=== PATIENT | male | born 1985 | race Caucasian/White ===

== ENCOUNTER 2023-11-23 10:03 | Outpatient (CLI) | payer MEDICARE, SELFPAY ==
[2023-11-23 10:55] LABS: Semen Viscosity Not Increased (Not Increa.)
[2023-11-23 10:56] LABS: Liquefaction Semen Complete in 30 min. (<30 minutes); Semen Color Opaque (Grey-opaque); Semen Immotility 0 %; Semen Morphology Result to Follow; Semen Non-Progressive Motility 0 %; Semen Progressive Motility 0 % (>32); Semen Total Motility 0 (>40% (PM+NP)); Sperm Count 0 Mil/mL (60-150 million/mL)
[2023-11-30 21:52] LABS: Fructose, Semen 123 mg/dL (150-600)
== END 2023-11-23 10:04 | disposition home or self-care (01) ==
DX: Z31.41 Encounter for fertility testing (principal)
CPT/HCPCS: 82757; 88160; 89320

== ENCOUNTER 2025-03-10 16:29 | Emergency (ER) | payer MEDICARE, OTHER, SELFPAY ==
[2025-03-10 16:29] VITALS: BP 137/98; PULSE 92; RESP 16; TEMP 36.8; O2SAT 97
--- NOTE | 2025-03-10 16:30 | ECG_ITS ---
Test Date: 2025-03-10 16:37:00 Measurements Intervals [place] Rate: 82 P: 26 IA: 181 QRS: 3 QRSD: 102 T: 29 QT: 341 QTc: 399 Interpretive Statements SINUS RHYTHM POSSIBLE RIGHT VENTRICULAR CONDUCTION DELAY [RSR (QR) IN V1/V2] ABNORMAL ECG Electronically Signed On 03-11-2025 11:32:02 CDT by Douglas Goss M.D.
--- OUTSIDE RECORDS SUMMARY | 2025-03-10 16:32 | XMS_ITS | Clinical Summary ---
Author Organization [facility] Address [address] [place] [address] Phone Care Team Providers Care Plastics Patternmaker Name Role Phone Varun Jenkins APRN, LISA Unavailable Varun Jenkins APRN, CORN GRINDER Primary Care Pr ovider Prabhu Mathew MD Unavailable Christian Lau MD Unavailable [phone] Allergies Active Allergy Reactions Criticality Noted Date Comments Bupropion Rash Medium 08/26/2015 Medications Blood Glucose Monitoring Suppl DeviceIndications :Type 2 diabetes mellitus with hyperglycemia, without long-term current use of insulin ([facility]) Diagnosis: Diabetes type 2 Blood testing frequency: once a day E11.65 1 Each 12/02/19 22 Active Glucose Blood StripIndications: Type 2 diabetes mellitus with hyperglycemia, without long-term current use of insulin ([facility]) Diagnosis: Diabetes type 2 Blood testing frequency: once a day E11.65 100 Strip 3 12/02/19 22 Active Lancets MiscIndications:T ype 2 diabetes mellitus with hyperglycemia, without long-term current use of insulin ([facility]) Use to test blood sugar once daily as directed. E11.65 100 Lancet 3 12/02/19 22 Active aspirin EC 81 MG Tablet Delayed ResponseIndicatio ns:Erythrocytosis Take 1 Tablet by mouth daily. 90 Tablet 3 04/28/20 22 Active topiramate (TOPAMAX) 25 MG Tablet Take 1 Tablet by mouth 2 times daily. 180 Tablet 3 05/01/20 22 Active SUMAtriptan (IMITREX) 50 MG Tablet Take 1 Tablet by mouth once as needed for Migraine for up to 36 doses. Use as directed. May repeat dose in 2 hours if headache recurs. 9 Tablet 3 05/01/20 22 Active zolpidem (AMBIEN) 5 MG Tablet 5 mg. 05/13/20 22 Active albuterol 108 (90 Base) MCG/ACT Aerosol SolutionIndicatio ns:Acute lower respiratory infection take 2 Puffs by inhalation every 4 hours as needed for Wheezing or Cough. 18 g 06/24/20 22 Active LORazepam (ATIVAN) 0.5 MG Tablet 07/22/20 22 Active Diclofenac Sodium (VOLTAREN) 1 % Gel Apply 4 g 4 times daily. Both knees 100 g 11 12/24/19 23 Active ondansetron (ZOFRAN-ODT) 4 MG TABLET DISPERSIBLE Take 1 Tablet by mouth every 8 hours as needed for Nausea - 1st line. 10 Tablet 01/27/20 23 Active metoclopramide (REGLAN) 10 MG Tablet Take 1 Tablet by mouth 4 times daily as needed for Nausea - 2nd line. 10 Tablet 01/27/20 23 Active metFORMIN (GLUCOPHAGE) 1000 MG TabletIndications :Type 2 diabetes mellitus with hyperglycemia, without long-term current use of insulin (HCC) Take 1 Tablet by mouth 2 times daily (with meals). 180 Tablet 1 11/30/19 24 Active Testosterone Cypionate 200 MG/ML SolutionIndicatio ns:Male hypogonadism 100 mg by Intramuscular route once a week. 6 mL 12/31/19 24 Active Empagliflozin (Jardiance) 10 MG TabletIndications :Type 2 diabetes mellitus with diabetic polyneuropathy, without long-term current use of insulin (HCC) TAKE 1 TABLET BY MOUTH DAILY 90 Tablet 3 02/25/20 24 Active BD Integra Syringe 21G X 1-1/2 3 ML Misc USE NEEDED THREE TIMES A WEEK 11/24/19 24 Active ALPRAZolam (XANAX) 0.5 MG Tablet Take 0.5 mg by mouth. Active clobetasol (TEMOVATE) 0.05 % Solution APPLY TO AFFECTED AREA OF SCALP ONCE DAILY NEEDED Active ketoconazole (NIZORAL) 2 % Shampoo Apply to wet hair, leave on for 3 minutes, then rinse; three times weekly. 30 days supply 11/25/19 24 Active Minoxidil for Men 5 % Solution APPLY TO THE AFFECTED AREA EVERY DAY Active Tirzepatide (Mounjaro) 7.5 MG/0.5ML Solution Auto-injector 7.5 mg by Subcutaneous route once a week. 2 mL 01/03/20 25 Active cyclobenzaprine (FLEXERIL) 10 MG TabletIndications :Contusion of left hip, initial encounter Take 1 Tablet by mouth 3 times daily as needed for Muscle spasms. 90 Tablet 1 02/09/20 25 Active tadalafil (Cialis) 10 MG TabletIndications :Male sexual dysfunction Take 1 Tablet by mouth as needed for Erectile Dysfunction. Take 30-60 minutes prior to sexual activity. 10 Tablet 1 02/09/20 25 Active amphetamine-dextr oamphetamine (ADDERALL) 30 MG TabletIndications :Attention deficit hyperactivity disorder (ADHD), predominantly inattentive type Take 1 Tablet by mouth 2 times daily. 60 Tablet 02/09/20 25 Active Active Problems Problem Noted Date Diagnosed Date ADHD 04/15/2023 Long-term current use of testosterone cypionate 09/22/2022 Hepatic steatosis 06/18/2022 TIMOTHY on CPAP 06/18/2022 Obesity, morbid, BMI 40.0-49.9 06/18/2022 Polyneuropathy 12/01/2021 Male hypogonadism 12/01/2021 Traumatic brain injury 12/01/2021 DDD (degenerative disc disease), lumbar 12/02/19 S/P lumbar fusion 12/01/2021 PTSD (post-traumatic stress disorder) 12/01/2021 Serotonin syndrome 12/01/2021 Type 2 diabetes mellitus 12/01/2021 Lumbar radiculopathy 11/25/2021 Secondary polycythemia Encounters Date Type Department Care Team Description 02/08/2025 MyChart RX Renewal [facility] [address] [place] [id number] Varun Jenkins, HARVEST CREW SUPERVISOR, CORN GRINDER Medication Renewal Reviewed 01/08/2025 MyChart RX Renewal [facility] [address] [place] [phone] Varun Jenkins APRN, LISA Medication Renewal Reviewed 01/02/2025 Refill [facility] [address] [place] [address] Varun Jenkins APRN, LISA Medication Refill 12/12/2024 MyChart RX Renewal [facility] [address] [place] [address] Varun Jenkins APRN, LISA Medication Renewal Reviewed from Last 3 Months Immunizations Immunization Administration Dates Next Due Hepatitis A And Hepatitis B Vaccine 05/06/2002,0 04/07/2002 Hepatitis A Vaccine 09/15/2003 Hepatitis B Vaccine 10/13/2002 Inactivated Polio Vaccine 03/31/2002 Influenza Vaccine Nasal 07/08/2007,10/07/2004 Influenza Vaccine, Quadrivalent, PF 05/01,07/15/2017,06/04/2016,06/26 Influenza Vaccine,unspecifie d Formulation 04/30/2019,05/16/2018,04/30/2018,04/30,06/30/2014,05/30/2008,07/08/2007 ,07/12/2003 Influenza Virus Vaccine, Whole Virus 07/12/2003, 10/13/2002 Influenza, Injectable, Quadrivalent 08/13/2006 MMR Vaccine 06/21/2023,04/07/2002 Meningococcal Group B OMV 03/31/2002 Meningococcal Polysaccharide Vaccine (MPSV4) 03/31/2002 Meningococcal Vaccine, Unspe cified Formulation 03/31/2002 OPV 03/31/2002 TD VACCINE 03/31/2002 TDAP Vaccine 05/21/2023,01/17/2016,08/30/2011 Td, Unspecified Formulation 08/30/2006, 2 Typhoid Vaccine 10/13/2002 Family History Medical History Relation Name Comments Hypertension Father Hypertension Mother Asthma Sister Relation Name Status Comments Brother Alive Father Alive Mother Alive Sister Social History Tobacco Use Types Packs/Day Years Used Date Smoking Tobacco: Former Smokeless Tobacco: Never Tobacco Cessation:Counseling Given: No Alcohol Use Standard Drinks/Week Comments Never 0 (1 standard drink = 0.6 oz pur e alcohol) [facility] Utilities Answer Date Recorded In the past 12 months has e electric, gas, oil, or water company threatened to shut off services in your home? Patient declined 10/03/2024 Social Connection and Isolation Panel Answer Date Recorded In a typical week, how many times do you talk on the phone with family, friends, or neighbors? Patient declined 10/03/2024 How often do you get togethe r with friends or relatives? Patient declined 10/03/2024 How often do you attend lutheran or yazdanism serv ices? Patient declined 10/03/2024 Do you belong to any clubs o r organizations such as lutheran groups, unions, fraternal or athletic groups, or school groups? Patient declined 10/03/2024 How often do you attend meet ings of the clubs or organizations you belong to? Patient declined 10/03/2024 Are you , , di vorced, , never , or living with a partner? 10/03/2024 AUDIT-C Answer Date Recorded Q1: How often do you have a drink containing alc ohol? Patient declined 10/03/2024 Q2: How many drinks containi ng alcohol do you have on a typical day when you are drinking? Patient declined 10/03/2024 Q3: How often do you have si x or more drinks on one occasion? Patient declined 10/03/2024 Overall Financial Resource Strain (CARDIA) Answe r Date Recorded How hard is it for you to pa y for the very basics like food, housing, medical care, and heating? Patient declined 10/03/2024 PHQ-2 Answer Date Recorded Total Score - Questions 1-9 0 10/28 [facility] - Occupational Stress Questionnaire Answer Date Recorded Do you feel stress - tense, restless, nervous, or anxious, or unable to sleep at night because your mind is troubled all the time - these days? Patient declined 10/03/2024 Exercise Vital Sign Answer Date Recorde d On average, how many days pe r week do you engage in moderate to strenuous exercise (like a brisk walk)? 3 days 10/03/2024 On average, how many minutes do you engage in exercise at this level? 60 min 10/03/2024 Hunger Vital Sign Answer Date Recorded Within the past 12 months, y ou worried that your food would run out before you got the money to buy more. Patient declined Within the past 12 months, t he food you bought just didn't last and you didn't have money to get more. Patient declined 11/2024 PRAPARE - Transportation Answer Date Re corded In the past 12 months, has l ack of transportation kept you from medical appointments or from getting medications? Patient declined 10/03/2024 In the past 12 months, has l ack of transportation kept you from meetings, work, or from getting things needed for daily living? Patient declined 10/03/2024 Housing Stability Vital Sign Answer Jose e Recorded In the last 12 months, was t here a time when you were not able to pay the mortgage or rent on time? No 10/05/2023 Number of Places Lived in the Last Year Not on f ile 10/05/2023 In the last 12 months, was t here a time when you did not have a steady place to sleep or slept in a group home (including now)? No 10/05/2023 Housing Stability Vital Sign Answer Jose e Recorded In the last 12 months, was t here a time when you were not able to pay the mortgage or rent on time? Patient declined 10/03/19 25 In the past 12 months, how m any times have you moved where you were living? 0 10/03/2024 At any time in the past 12 m ont, were you homeless or living in a group home (including now)? Patient declined 10/03/2024 Education Answer Date Recorded What is the highest level of school you have completed or the highest degree you have received? Bachelor's degree (e.g., BA, AB, BS) 01/20/2023 Sexually Active Control Partners Comments Yes Sex and Gender Information Value Date Recorded Sex Assigned at Not on file Legal Sex Male 3:05 PM FOUNDRY MELT SUPERVISOR Gender Identity Not on file Sexual Orientation Not on file Last Filed Vital Signs Vital Sign Reading Time Taken Comments Blood Pressure 126/82 11/15/2024 10:40 AM CDT Pulse 106 11/15/2024 10:40 AM CDT Temperature 36.8 C (98.3 F) 11/15/2024 10:40 AM CDT Respiratory Rate 16 11/15/2024 10:40 AM CDT Oxygen Saturation 95% 11/15/2024 10:40 AM CDT Inhaled Oxygen Concentration - - Weight 134.3 kg (296 lb) 11/15/2024 10:40 AM CDT Height 170.2 cm (5' 7) 11/15/2024 10:40 AM CDT Body Mass Index 46.36 11/15/2024 10:40 AM CDT Plan of Treatment Upcoming Encounters Date Type Department Care Team (Late st Contact Info) Description 03/19/2025 10:00 AM CDT Office Visit [facility] - [place] [address] [place] [address] Varun Jenkins APRN, CORN GRINDER [address] [address] Health Maintenance Due Date Last Done Comments Diabetes: Eye Exam 1984 Diabetes: Foot Exam 1984 Human Papillomavirus (HPV) Immunization (1 - Male 3-dose series) 1999 Diabetes: Hemoglobin A1c 05/16/2023 023, 07/17/2022, 07/09/2022, Additional history exists Diabetes: Nephropathy Screening 01/27/2024 01/26/2023, 12/15/2022, 11/13/2022, Additional history exists SARS-COV-2 Immunization ( season) 2024 Influenza Immunization (#1) 04/30/202505/01, 04/30/2019, 05/16/2018, Additional history exists Td Immunization Every 10 Years (Adults With 1 Tdap) 05/21/2033 05/21/2023, 01/17/2016, 08/30/2011, Additional history exists Respiratory Syncytial Virus (RSV) Immunization (Adult) (1 - 1-dose 75+ series) 2059 Meningococcal Immunization (ACWY) Completed 03/31/2002, 03/31/2002 Hepatitis B Immunization Completed 003, 05/06/2002, 04/07/2002 DTaP/Tdap/Td Immunization Discontinued 2022, 01/17/2016, 08/30/2011, Additional history exists Hepatitis C Virus (HCV) Screening Discontinued Pneumococcal Immunization Combined Discontinued Rotavirus Immunization Aged Out No lo nger eligible based on patient's age to complete this topic Procedures Procedure Name Priority Date/Time Associated Diagnosis Comments CMP (COMPREHENSIVE METABOLIC PANEL) STAT 01/26/2023 10:35 AM CDT HEMOGLOBIN A1C W/ ESTIMATED GLUCOSE Routine 11/13/2022 11:09 AM CDT Type 2 diabetes mellitus with diabetic polyneuropathy, without long-term current use of insulin (HCC) from Last 3 Months or Most Recently Relevant to Health Maintenance Results * (ABNORMAL) Comprehensive Metabolic Panel (Cmp) [id number] (01/26/2023 10:35 AM CDT) SODIUM 140 136 - 144 mmol/L 01/26/2023 11:01 AM CDT [facility] POTASSIUM 3.8 3.5 - 5.1 mmol/L 01/26/2023 11:01 AM CDT [facility] CHLORIDE 102 100 - 110 mmol/L 01/26/2023 11:01 AM CDT [facility] CO2, VENOUS 26 22 - 32 mmol/L 01/26/2023 11:01 AM CDT [facility] ANION GAP 15.8 8.0 - 20.0 mmol/L 01/26/2023 11:01 AM CDT [facility] GLUCOSE 126(H) 70 - 99 mg/dL 01/26/2023 11:01 AM CDT [facility] BUN 15 6 - 20 mg/dL 01/26/2023 11:01 AM CDT [facility] CREATININE, BLOOD 1.05 0.80 - 1.30 mg/dL 01/26/2023 11:01 AM CDT [facility] BUN/CREATININE RATIO 14 12 - 20 ratio 01/26/2023 11:01 AM CDT [facility] TOTAL PROTEIN 7.2 6.0 - 8.3 g/dL 01/26/2023 11:[address] [facility] ALBUMIN 4.1 3.5 - 5.2 g/dL 01/26/2023 11:[address] [facility] Comment: The colormetric methods used for the determination of Albumin may lead to falsely elevated test results in patients suffering from renal failure or insufficiency due to interference with other proteins. A/G RATIO 1.3 1.0 - 2.0 01/26/2023 11:01 AM T [facility] CALCIUM 8.7(L) 8.9 - 10.3 mg/dL 01/26/2023 11:[address] [facility] T BILI 1.3(H) <=1.2 mg/dL 01/26/2023 11:[address] [facility] SGOT (AST) 25 <=40 U/L 01/26/2023 11:[address] [facility] SGPT (ALT) 29 <=41 U/L 01/26/2023 11:[address] [facility] ALKALINE PHOSPHATASE 62 40 - 130 U/L 01/26/2023 11:[address] [facility] GFR, ESTIMATED >60 >=60 01/26/2023 11:[address] [facility] Comment: Creatinine Clearance is the preferred criteria for selecting drug dose adjustments in renally impaired patients. The GFR is provided as additional pertinent clinical information. GFR is reported in mL/min/1.73 sq m. Calculation based on the Chronic Kidney Disease Epidemiology Collaboration (CKD- EPI) equation refit without adjustment for race. GFR, EST. >60 >=60 01/26/2 023 11:01 AM T [facility] GFR, EST. NONAFRICAN >60 >=60 01/26/2023 11:[address] [facility] Blood Venipuncture / Unknown 01/26/2023 10:35 AM CDT 01/26/2023 10:35 AM CDT Vidhya Sharpe HARVEST CREW SUPERVISOR, CORN GRINDER CHEMISTRY ORDERABLES Final Result [facility] [address] [place] [address] * HEMOGLOBIN A1C W/ ESTIMATED GLUCOSE (11/13/2022 11:09 AM CDT) HGB-A1C 5.1 4.0 - 6.0 % 11/13/2022 12:14 PM CDT [facility] Est Average Glucose 99.7 mg/dL 11/13/2022 12:14 PM CDT [facility] Blood Venipuncture / Unknown 11/13/2022 11:09 AM CDT 11/13/2022 11:36 AM CDT Narrative [facility] - 11/13/2022 12:14 PM CDT HEMOGLOBIN A1C: DIABETIC PATIENTS: WELL-CONTROLLED: 6.2 - 7.0 INTERMEDIATE WELL-CONTROLLED: 7.0 - 9.0 POORLY-CONTROLLED: >9.0 Varun Jenkins HARVEST CREW SUPERVISOR, CORN GRINDER CHEMISTRY ORDERA BLES Final Result Performing Organization Address City/[facility] Co de Phone Number [facility] [address] [place] [address] from Last 3 Months or Most Recently Relevant to Health Maintenance Insurance MEDICAID [place] MEDICARE C [facility] MEDICARE C [employer] [place] [facility] MEDICARE C [facility] Care Teams Plastics Patternmaker Relationship Specialty Start Date End Date Varun Jenkins APRN, CORN GRINDER [address] [address] PCP - General Advanced Practice Nurse 11/25/21 Varun Jenkins APRN, CORN GRINDER [address] [facility] [address] [place], [place] [id number] Nurse Practitioner Advanced Practice Nurse 11/25/21 Prabhu Mathew MD [address] [facility] [address] [place] [address] Consulting Physician Endocrinology 04/29/22 Christian Lau MD [address] [place] [address] Consulting Physician Neurology 05/01/22
--- OUTSIDE RECORDS SUMMARY | 2025-03-10 16:32 | XMS_ITS | Encounter Summary ---
Author Organization [facility] Address [address] [facility] [address] [place] [address] Phone Care Team Providers Care Order Filler Name Role Phone Varun Jenkins SPORTS MANAGEMENT PROFESSOR Primary Care Provider Reason for Visit * Reason Comments Infertility * Consultation (Routine) - Authorized Specialty Diagnoses / Procedures Referred By Srinivas cali Referred To Contact Urology Diagnoses Male infertility Felipe Gonzales MD PhD Phone: tel: fax: [facility] (All Locations) Referral ID Status Reason Start Date Expiration Date Visits Requested Visits Authorized [id number] Authorized Specialty Services Required 01/09/2025 08/11/[phone] Encounter Details Date Type Department Care Team (Late st Contact Info) Description 03/09/2025 1:40 PM CDT Office Visit [facility] U[facility] Medical Office Building [address] [place] [address] Rogelio Main MD [address] [facility] [place] [address] Male infertility Social History Tobacco Use Types Packs/Day Years Used Date Smoking Tobacco: Former Cigarettes Tobacco Cessation:Counseling Given: Not Answered Sex and Gender Information Value Date Recorded Sex Assigned at Not on file Legal Sex Male 7:16 PM SUPERVISOR ANODIZING Gender Identity Not on file Sexual Orientation Not on file documented as of this encounter Last Filed Vital Signs Vital Sign Reading Time Taken Comments Blood Pressure 114/77 03/09/2025 1:13 PM CDT Pulse 62 03/09/2025 1:13 PM CDT Temperature - - Respiratory Rate - - Oxygen Saturation - - Inhaled Oxygen Concentration - - Weight 113.4 kg (250 lb) 03/09/2025 1:13 PM CDT Height 170.2 cm (5' 7) 03/09/2025 1:13 PM CDT Body Mass Index 39.16 03/09/2025 1:13 PM CDT documented in this encounter Plan of Treatment Not on file documented as of this encounter Visit Diagnoses Diagnosis Male infertility Unspecified male infertility documented in this encounter Historical Medications * This list may reflect changes made after this encounter. clomiPHENE (CLOMID) 50 mg tablet Take 0.5 tablets (25 mg total) by mouth daily chorionic gonadotropin (PREGNYL) 10,000 unit injection Inject into the muscle as instructed 3 (three) times a week 10/14/2024 added in this encounter Orders Outpatient Referral Count Last Ordered Date Fir st Ordered Date AMB REFERRAL TO UROLOGY 1 03/09/2025 documented in this encounter Care Teams Order Filler Relationship Specialty Start Date End Date Varun Jenkins NP [address] [place] [address] PCP - General Nurse Practitioner 07/15/23 documented as of this encounter
--- OUTSIDE RECORDS SUMMARY | 2025-03-10 16:32 | XMS_ITS | Clinical Summary ---
Author Organization [facility] Address [address] [place] [address] Care Team Providers Care Chemical Process Operator Name Role Phone Varun Jenkins NP Primary Care Provider Allergies Active Allergy Reactions Criticality Noted Date Comments Bupropion Rash Medium 08/26/2015 Medications topiramate (TOPAMAX) 25 mg tablet Take 1 tablet (25 mg total) by mouth 2 (two) times a day Active testosterone cypionate (DEPO-TESTOTERON E) 200 mg/mL injection Inject 0.5 mL (100 mg total) into the muscle as instructed once a week 3 Active tadalafiL (ADCIRCA) 10 mg tablet Take 1 tablet (10 mg total) by mouth as needed 3 Active SUMAtriptan (IMITREX) 50 mg tablet Take 1 tablet (50 mg total) by mouth daily as needed 2 Active empagliflozin (JARDIANCE) 10 mg tablet Take 1 tablet (10 mg total) by mouth daily 2 Active dextroamphetamin e-amphetamine (ADDERALL) 30 mg tablet Take 1 tablet (30 mg total) by mouth 2 (two) times a day 4 Active cyclobenzaprine (FLEXERIL) 10 mg tablet Take 1 tablet (10 mg total) by mouth 3 (three) times a day as needed 1 Active methylPREDNISolo ne (MEDROL DOSEPACK) 4 mg DosepackIndicati ons:Wheezing Take 6 tabs on day 1, reduce dose by 1 daily until prescription is complete. 1 packet 3 Active Additional Information Patient not taking.Reported on 03/09/2025 benzonatate (TESSALON) 200 mg capsuleIndicatio ns:Acute cough Take 1 capsule (200 mg total) by mouth 3 (three) times a day as needed for cough keep tessalon out of reach of children, especially children under the age of 10, due to possible serious risk such as if ingested by children under the age of 10. 30 capsule 3 Active Additional Information Patient not taking.Reported on 03/09/2025 chorionic gonadotropin (PREGNYL) 10,000 unit injection Inject into the muscle as instructed 3 (three) times a week 5 Active clomiPHENE (CLOMID) 50 mg tablet Take 0.5 tablets (25 mg total) by mouth daily Active Active Problems No known active problems Encounters Date Type Department Care Team Description 03/09/2025 1:40 PM CDT Office Visit [facility] Urology [address] [facility] Office Building [address] [place] [address] Rogelio Main MD Male infertility 02/12/2025 9:00 AM CDT Clinical Support [facility] [address] [place] [phone] Visit for semen analysis 02/12/2025 7:09 AM CDT - 02/12/2025 11:59 PM CDT Hospital Encounter [address], [address] [phone] Discharge Disposition: Discharge to home or self care 01/09/2025 ACO Medication Access [facility] Accountable Care Organization [address] [place] [address] Anastasiia Morris CPhT 12/25/2024 6:58 AM CDT - 12/25/2024 11:59 PM CDT Hospital Encounter [address], [address] [phone] Discharge Disposition: Discharge to home or self care from Last 3 Months Social History Tobacco Use Types Packs/Day Years Used Date Smoking Tobacco: Former Cigarettes Tobacco Cessation:Counseling Given: Not Answered Sex and Gender Information Value Date Recorded Sex Assigned at Not on file Legal Sex Male 7:16 PM TOOLING INSPECTOR Gender Identity Not on file Sexual Orientation Not on file Obstetrics History Last Filed Vital Signs Vital Sign Reading Time Taken Comments Blood Pressure 114/77 03/09/2025 1:13 PM CDT Pulse 62 03/09/2025 1:13 PM CDT Temperature 36.8 C (98.2 F) 07/15/2023 5:51 PM TOOLING INSPECTOR Respiratory Rate 16 07/15/2023 5:51 PM TOOLING INSPECTOR Oxygen Saturation 97% 07/15/2023 5:51 PM TOOLING INSPECTOR Inhaled Oxygen Concentration - - Weight 113.4 kg (250 lb) 03/09/2025 1:13 PM CDT Height 170.2 cm (5' 7) 03/09/2025 1:13 PM CDT Body Mass Index 39.16 03/09/2025 1:13 PM CDT Plan of Treatment Health Maintenance Due Date Last Done Comments Depression Screening 1984 Hepatitis C Screening 1984 Regular Well Visit/Exam 18-64 2002 Varicella Vaccines (1 of 2 - 13+ 2-dose series) 08/05/2007 Influenza Vaccine (#1) 2025 0, 04/30/2019, 05/16/2018, Additional history exists DTaP/Tdap/Td Vaccine (4 - Td or Tdap) 05/21/2033 05/21/2023, 01/17/2016, 08/30/2011, Additional history exists Hepatitis B Screening Completed 10/13/2002, 002 HPV Vaccines Aged Out No longer eligi ble based on patient's age to complete this topic Pneumococcal vaccine <65 Aged Out No longer eligible based on patient's age to complete this topic Procedures Procedure Name Priority Date/Time Associated Diagnosis Comments POCT SEMEN Routine 02/12/2025 8:57 AM CDT Visit for semen analysis from Last 3 Months Results * (ABNORMAL) POCT semen (02/12/2025 8:57 AM CDT) Volume, Semen POC 1.5 >=1.4 ML Viscosity, Semen, POC SL. INCR. Sperm Concentration (M/mL) 21.8 >=16 M/mL pH, Semen, POC 8.1 >=7.2 Progressive Motility (%), POC 15(A) >=32 % Total Motility, (%), POC 24(A) >=40 % Total Progressive Motile Count (TPMC) (M), POC 4.8(A) >=6.7 M Total Motile Count (TMC) (M), POC 8.0(A) >=9.4 M Normal Morphology, (%) POC 1(A) >=4 % Comment:many multiple defect s Viability, (%), POC Comment:n/a DAYS OF ABSTINENCE, SEMEN, POC 5 2 - 5 day(s) Semen 02/12/2025 8:57 AM CDT Ansley PlKendra mehtae - 02/12/2025 12:[address] Main Alberto Devi MD POINT OF CARE TEST ORDERA BLES Final Result from Last 3 Months Insurance [facility] MEDICARE ADVANTAGE [facility] MEDICARE ADVANTAGE Care Teams Chemical Process Operator Relationship Specialty Start Date End Date Varun Jenkins NP [address] [facility] [address] PCP - General Nurse Practitioner 07/15/23
--- OUTSIDE RECORDS SUMMARY | 2025-03-10 16:32 | XMS_ITS | Referral Summary ---
Author Organization [facility] Address [address] [place] [address] Care Team Providers Care Slag Dumper Name Role Phone Varun Jenkins NP Primary Care Provider Encounters Date Type Department Care Team Description 03/09/2025 1:40 PM CDT Office Visit [facility] Urology [address] [facility] Office Building [address] [place] [phone] Rogelio Main MD Male infertility 02/12/2025 9:00 AM CDT Clinical Support [facility] [address] [place] [address] [address] [place] [address] Visit for semen analysis 02/12/2025 7:09 AM CDT - 02/12/2025 11:59 PM CDT Hospital Encounter [address], [address] [place] [address] Discharge Disposition: Discharge to home or self care 01/09/2025 ACO Medication Access [facility] Accountable Care Organization [address] [place] [address] Anastasiia Morris CPhT 12/25/2024 6:58 AM CDT - 12/25/2024 11:59 PM CDT Hospital Encounter [address], [address] [facility] [place] [address] Discharge Disposition: Discharge to home or self care from Last 3 Months Allergies Active Allergy Reactions Criticality Noted Date [...] Active Active Problems No known active problems Social History Tobacco Use Types Packs/Day Years Used Date Smoking Tobacco: Former Cigarettes Tobacco Cessation:Counseling Given: Not Answered Sex and Gender Information Value Date Recorded Sex Assigned at Not on file Legal Sex Male 7:16 PM LEGAL REFEREE Gender Identity Not on file Sexual Orientation Not on file Last Filed Vital Signs Vital Sign Reading Time Taken Comments Blood Pressure 114/77 03/09/2025 1:13 PM CDT Pulse 62 03/09/2025 1:13 PM CDT Temperature 36.8 C (98.2 F) 07/15/2023 5:51 PM LEGAL REFEREE Respiratory Rate 16 07/15/2023 5:51 PM LEGAL REFEREE Oxygen Saturation 97% 07/15/2023 5:51 PM LEGAL REFEREE Inhaled Oxygen Concentration - - Weight 113.4 kg (250 lb) 03/09/2025 1:13 PM CDT Height 170.2 cm (5' 7) 03/09/2025 1:13 PM CDT Body Mass Index 39.16 03/09/2025 1:13 PM CDT Plan of Treatment Not on file Procedures Procedure Name Priority Date/Time Associated Diagnosis [...] 5 day(s) Semen 02/12/2025 8:57 AM CDT Sandy Mandel - 02/12/2025 12:[address] Main Alberto Devi MD POINT OF CARE TEST ORDERA BLES Final Result from Last 3 Months Insurance [facility] Address: [facility] [id number] [place] [address] [facility] MEDICARE ADVANTAGE [facility] MEDICARE ADVANTAGE Care Teams Slag Dumper Relationship Specialty Start Date End Date Varun Jenkins NP [address] [place] [address] PCP - General Nurse Practitioner 07/15/23
--- OUTSIDE RECORDS SUMMARY | 2025-03-10 16:32 | XMS_ITS | Clinical Summary ---
Author Organization [facility] Address [address] [place] [address] Care Team Providers Care Barrel Assembler Helper Name Role Phone Williams Reddy DO Unavailable Varun Jenkins LOAN PROCESSOR-PATIENT CASE COORDINATOR Primary Care Pro vider Source Comments [facility],non-owned Affiliates and Associated Physician Practices is amultiple site organization consisting of ambulatory clinics and hospital sitesin [place], [place], [place] and [place]. This disclosure is being madepursuant to the Care Everywhere program and may not contain all information available regarding this patient. Last updated 18.[facility] [employer] Allergies Active Allergy Reactions Criticality Noted Date Comments Bupropion Rash Medium 08/26/2015 Medications * Be aware that medications may not be up to date on this document. Alwaysverify current medications with the patient. amphetamine-dext roamphetamine (ADDERALL) 30 MG tablet Take 1 (one) tablet by mouth Every morning and lunchtime 0 05/26/20 14 Active ibuprofen (MOTRIN) 600 MG tablet Take 1 Tab by mouth every 6 hours as needed for Pain 20 Tab 06/17/20 16 Active ALPRAZolam (XANAX) 0.5 MG tablet Take 1 (one) tablet by mouth as needed for Anxiety 2 tablets prn Active testosterone (ANDROGEL) 20.25 MG/ACT (1.62%) gel Use 4 Pump as instructed once daily Apply to clean, dry, intact skin of the shoulders and upper arms. 3 bottles 1 04/06/20 19 Active Additional Information Patient not taking.Reported on 03/04/2022 traZODone (DESYREL) 100 MG tablet 04/05/20 20 Active hydrOXYzine hcl (ATARAX) 10 MG tablet 11/06/19 21 Active cyclobenzaprine (FLEXERIL) 10 MG tablet Take 1 (one) tablet by mouth 2 times daily as needed for Muscle Spasms 60 tablet 1 01/08/20 21 Active metFORMIN (GLUCOPHAGE) 500 MG tablet TAKE 1 TABLET BY MOUTH TWICE DAILY WITH THE MORNING AND EVENING MEAL 60 tablet 08/13/20 21 Active blood glucose monitoring device (ONE TOUCH ULTRA) device Diagnosis: Diabetes type 2 Blood testing frequency: once a day E11.65 12/02/19 22 Active Blood Glucose Monitoring Suppl (Nuroa VERMixertech REFLECT) w/Device KIT USE TEST ONCE DAILY 12/02/19 22 Active REFRESH TEARS 0.5 % ophthalmic solution 03/24/20 21 Active TRULICITY 1.5 MG/0.5ML injection ADMINISTER 1.5 MG UNDER THE SKIN 1 TIME A WEEK 02/11/20 22 Active JARDIANCE 10 MG tablet Take 1 (one) tablet by mouth once daily 02/11/20 22 Active Aspirin Low Dose 81 MG tablet Take 1 (one) tablet by mouth once daily 06/29/20 23 Active cyclobenzaprine (Flexeril) 10 MG tablet Take 1 (one) tablet by mouth 3 times daily as needed 01/21/20 23 Active FeroSul 325 (65 Fe) MG tablet 10/28/19 24 Active Semaglutide (2 MG/DOSE) 8 MG/3ML Subcutaneous Solution Pen-injector (Ozempic (2 MG/DOSE)) Inject 2 (two) mg subcutaneously every 7 days Active Testosterone Cypionate 200 MG/ML SOLN Active ketoconazole (Nizoral) 2 % shampooIndicatio ns:Other seborrheic dermatitis Apply to wet hair, leave on for 3 minutes, then rinse; three times weekly. 30 days supply 120 mL 5 11/25/19 24 Active clobetasol (Temovate) 0.05 % solutionIndicati ons:Other seborrheic dermatitis Apply to affected scalp once daily as needed. 30 days supply. 50 mL 3 11/25/19 24 Active minoxidil (Rogaine Extra Strength) 5 % solutionIndicati ons:Other androgenic alopecia Apply to affected area once daily 120 mL 5 11/25/19 24 Active Active Problems Problem Noted Date Diagnosed Date Prediabetes 01/07/2021 GERD (gastroesophageal reflux disease) 9 Migraines 11/30/2018 TIMOTHY (obstructive sleep apnea ): 2018 mild - mod TIMOTHY AHI 12.2, O2 82%, 290 lbs, cpap 8 10/25/2017 M.obesity 03/31/2017 BMI 50.0-59.9, adult 03/31/2017 Mood disorder 03/31/2017 Overview (03/31/2017): Office Visit 08/11/16 Dr. Rachel Hairston Lumbar degenerative disc disease 03/18/2017 Hypogonadism in male 09/30/2016 TBI (traumatic brain injury) 01/29/2016 S/P lumbar fusion 10/29/2015 Recurrent major depressive disorder, in full rem ission 10/29/2015 Overview (07/07/2018): Dr. Peraza -16-18 ADHD (attention deficit hyperactivity disorder) 06/26/2015 Chronic back pain 06/26/2015 Chronic ankle pain 06/26/2015 Degeneration of cervical intervertebral disc Torn rotator cuff 08/28/2014 Overview (08/28/2014): Left Family history of ischemic heart disease 014 Resolved Problems Problem Noted Date Diagnosed Date Resolved Date Suspected sleep apnea 09/08/20172017 Snoring 09/08/2017 10/25/2017 Hypersomnia 09/08/2017 10/25/2017 Malaise and fatigue 09/08/2017 10/25/19 18 Depression 09/08/2017 10/25/2017 S/P appendectomy 06/26/2015 06/04/2016 Obesity 06/26/2015 09/08/2017 Old lateral collateral ligament disruption 08/28/2014 08/12/2015 Concussion with no loss of consciousness 08/28/2014 08/12/2015 Immunizations Immunization Administration Dates Next Due HEP A VACCINE, ADULT 09/15/2003 HEP A/HEP B 05/06/2002 HEP B VACCINE, ADULT 3 DOSE 10/13/2002 INFLUENZA VACCINE 04/30/2019, 8,07/08/2007,07/12 INFLUENZA VACCINE, QUADR. (A FLURIA, FLUZONE QUADRIVALENT; 6MO+) (IIV4) 08/13/2006 INFLUENZA VACCINE, QUADR. (F LUZONE; FLULAVAL; FLUARIX; AFLURIA QUADRIVALENT; 6MO+), 0.5 ML (IIV4) 05/28/2020,07/15/2017,06/04/2016,06/26 MENINGOCOCAL MENINGITIS 03/31/2002 MMR 04/07/2002 Meningococcal B Recombinant 2 Dose, IM 2 POLIO OPV 03/31/2002 TD VACCINE 08/30/2006,03/31/2002 TDAP (7yrs+) 01/17/2016,08/30/2011 TYPHOID VACCINE H-P 10/13/2002 Td (Adult), 2 Lf Tetanus Tox oid, Adsorbed, Pf 03/31/2002 Family History Medical History Relation Name Comments Hypercholesterolemia Father Hypertension Father Sleep Disorder - Other Father DVT - Deep Vein Thrombosis Mother Heart Disease Mother Other Mother cardiac cath Relation Name Status Comments Brother Alive x4 Father Alive Mother Alive Sister Alive x3 Social History Tobacco Use Types Packs/Day Years Used Date Smoking Tobacco: Former Cigarettes Q uit: 08/28/2013 Smokeless Tobacco: Never Tobacco Cessation:Counseling Given: Not Answered Alcohol Use Standard Drinks/Week Comments Yes 0 (1 standard drink = 0.6 oz pur e alcohol) rare PHQ-2 Answer Date Recorded PHQ2 TOTAL SCORE 2 01/07/2021 Sex and Gender Information Value Date Recorded Sex Assigned at Not on file Legal Sex Male 9:05 AM CDT Gender Identity Not on file Sexual Orientation Not on file Occupation Industry Job Start Date Job End Date Student Not on file Not on file Not on file Last Filed Vital Signs Vital Sign Reading Time Taken Comments Blood Pressure 132/89 03/04/2022 9:26 AM CDT Pulse 104 03/04/2022 9:26 AM CDT Temperature 37.1 C (98.7 F) 03/04/2022 9:26 AM CDT Respiratory Rate 20 01/07/2021 10:45 AM CDT Oxygen Saturation 92% 03/04/2022 9:26 AM CDT Inhaled Oxygen Concentration - - Weight 133.8 kg (295 lb) 03/04/2022 9:26 AM CDT Height 170.2 cm (5' 7) 03/04/2022 9:26 AM CDT Body Mass Index 46.2 03/04/2022 9:26 AM CDT Plan of Treatment Health Maintenance Due Date Last Done Comments HPV VACCINE (1 - 3-dose SCDM series) 2011 DEPRESSION SCREENING 08/30/2024 MEDICARE AWV CALENDAR YEAR 2024 01/07/2021, 01/17/2020, 07/19/2018 INFLUENZA VACCINE (#1) 2025 , 04/30/2019, 05/16/2018, Additional history exists DTAP/TDAP/TD VACCINES (5 - Td or Tdap) 01/16/2026 01/17/2016, 08/30/2011, 08/30/2006, Additional history exists LIPID TESTING 12/01/2026 12/01/2021, 12/28, 01/23/2020, Additional history exists ZOSTER VACCINE (1 of 2) 2034 MENINGOCOCCAL (Group B) VACCINE SHARED DECISION-MAKING Discontinued 03/31/2002 MENINGOCOCCAL GROUPS A/C/Y/W VACCINE Completed 03/31/2002 HEPATITIS B VACCINE Discontinued 10/13/2002, 2 COVID-19 VACCINE Discontinued HEPATITIS C SCREENING Discontinued HIB VACCINE Aged Out No longer eligi ble based on patient's age to complete this topic HIV SCREENING Discontinued PNEUMOCOCCAL VACCINE Aged Out No long er eligible based on patient's age to complete this topic Medical Devices Implanted Type Area Family Services Specialist Device Identifier Shelf Expiration Date Model / Serial / Lot Chava Push Comp 2.9mm Implanted:Qty: 2 on 10/15/2014 by Flo Silverman MD at [facility] Left: Shoulder [employer] 03/30/2016 [id number] / / [id number] Anch Sut Swvl Chava Tenod Biocomp 7 X 19.1 Implanted:Qty: 1 on 10/15/2014 by Flo Silverman MD at [facility] Left: Shoulder [employer] 06/30/2016 [id number] -[id number] / / [id number] Procedures Procedure Name Priority Date/Time Associated Diagnosis Comments LIPID PROFILE Routine 01/13/2021 8:08 AM CDT Prediabetes M.obesity from Last 3 Months or Most Recently Relevant to Health Maintenance Results * (ABNORMAL) LIPID PROFILE (01/13/2021 8:08 AM CDT) Cholesterol 181 <200 mg/dL [facility] HDL Cholesterol 40 > OR = 40 mg/dL [facility] Triglycerides 143 <150 mg/dL [facility] LDL Calculated 115(H) mg/dL (calc) [facility] Comment: Reference range: <100 Desirable range <100 mg/dL for primary prevention; <70 mg/dL for patients with CHD or diabetic patients with > or = 2 CHD risk factors. LDL-C is now calculated using the Ramon-Adriel calculation, which is a validated novel method providing better accuracy than the Friedewald equation in the estimation of LDL-C. Ramon ORELLANA et al. SADIA. 2013;310(19): 1647-4312 (http://education.TORIA.ihiji/faq/HGH344) CHOL/HDLC RATIO 4.5 <5.0 (calc) [facility] Non HDL Cholesterol 141(H) <130 mg/dL (calc) [facility] Comment: For patients with diabetes plus 1 major ASCVD risk factor, treating to a non-HDL-C goal of <100 mg/dL (LDL-C of <70 mg/dL) is considered a therapeutic option. Test Performed at: [facility] [id number] [place] [address] MARGARET REYES DO,MPH Blood BLOOD SPECIMEN / Unknown 01/13/2021 8:08 AM CDT 01/13/2021 8:08 AM CDT us Dalton Peraza MD LAB - CHEMISTRY ORDERABLES F inal Result [facility] [id number] [place] [address] from Last 3 Months or Most Recently Relevant to Health Maintenance Insurance [facility] MA[facility] MEDICARE [place] [id number] MEDICAID - OUT OF STATE [facility] MANAGED MEDICARE [place] [id number] [facility] [email or web address] Address: SHAYNA VillatoroB ATTENTION [id number] JOSE C ABDULAZIZ [address] [facility] Care Teams Barrel Assembler Helper Relationship Specialty Start Date End Date Varun Jenkins APRN-LISA PCP - General 02/05/22 Williams Reddy DO Neurological Surgery 06/26/15
--- OUTSIDE RECORDS SUMMARY | 2025-03-10 16:32 | XMS_ITS | Encounter Summary ---
Author Organization [facility] Address [address] [place] [address] Phone Care Team Providers Care Handle And Vent Machine Operator Name Role Phone Varun Jenkins APRN, CNP Unavailable Varun Jenkins APRN, LISA Primary Care Pr ovider Prabhu Mathew MD Unavailable Christian Lau MD Unavailable [phone] Reason for Visit * Reason Comments Medication Refill Encounter Details Date Type Department Care Team (Late st Contact Info) Description 04/05/2022 Refill [facility] - Family Medicine [facility] [address] [place] [phone] Varun Jenkins APRN, CONSUMER MARKETING ANALYST [address] [address] Medication Refill Social History Tobacco Use Types Packs/Day Years Used Date Smoking Tobacco: Former Smokeless Tobacco: Never Alcohol Use Standard Drinks/Week Comments Never 0 (1 standard drink = 0.6 oz pur e alcohol) PHQ-2 Answer Date Recorded Total Score - Questions 1-9 0 10/29 Sexually Active Control Partners Comments Yes Sex and Gender Information Value Date Recorded Sex Assigned at Not on file Legal Sex Male 3:05 PM LADIES LOCKER ROOM ATTENDANT Gender Identity Not on file Sexual Orientation Not on file COVID-19 Exposure Response Date Recorded In the last 10 days, have yo u been in contact with someone who was confirmed or suspected to have Coronavirus/COVID-19? No / Unsure 04/03/2022 7:33 AM CDT documented as of this encounter Miscellaneous Notes * Telephone Encounter - Aisha Joseph RN - 04/06/2022 2:32 PM CDT Name from pharmacy: TRULICITY 3MG/0.5ML SDP 0.5ML Will file in chart as: Trulicity 3 MG/0.5ML Solution Pen-injector The original prescription was discontinued on 04/03/2022 by Varun Jenkins APRN, CNP for thefollowing reason: Dose adjustment. documented in this encounter Plan of Treatment Upcoming Encounters Date Type Department Care Team (Late st Contact Info) Description 03/19/2025 10:00 AM CDT Office Visit [facility] - Family Medicine [facility] [address] [place] [address] Varun Jenkins APRN, CNP [address] [address] documented as of this encounter Visit Diagnoses Diagnosis Type 2 diabetes mellitus with diabetic polyneuropathy, without long-term current use of insulin (HCC) documented in this encounter Care Teams Handle And Vent Machine Operator Relationship Specialty Start Date End Date Varun Jenkins APRN, CNP #[address] [address] PCP - General Advanced Practice Nurse 11/25/21 Varun Jenkins APRN, CNP #[address] [address] Nurse Practitioner Advanced Practice Nurse 11/25/21 Prabhu Mathew MD #[address] [facility] [address] [address] [address] Consulting Physician Endocrinology 04/29/22 Christian Lau MD #[address] [place] [address] Consulting Physician Neurology 05/01/22 documented as of this encounter
--- OUTSIDE RECORDS SUMMARY | 2025-03-10 16:32 | XMS_ITS | Encounter Summary ---
Author Organization [facility] Address [address] [place] [address] Care Team Providers Care Acting Professor Name Role Phone Varun Jenkins SANDER WOODEN PENCILS Primary Care Provider Reason for Visit * Reason Comments ACO Quality Med Management Encounter Details Date Type Department Care Team (Late st Contact Info) Description 01/09/2025 ACO Medication Access [facility] Accountable Care Organization [address] [place] [address] Anastasiia Morris CPhT [address] [facility] [address] [place] [address] Social History Tobacco Use Types Packs/Day Years Used Date Smoking Tobacco: Never Sex and Gender Information Value Date Recorded Sex Assigned at Not on file Legal Sex Male 7:16 PM PATHOLOGY ASSISTANT Gender Identity Not on file Sexual Orientation Not on file documented as of this encounter Progress Notes * Anastasiia Morris CPhT - 01/09/2025 11:45 AM CDT ACO Medication Adherence Outreach Jai Linares is meeting the following Medicare Star Measures: Adherence to non-insulin diabetes med (med filled >80% of calendar year) (MAD); Mounjaro According to this report, Mounjaro (tirzepatide) was last filled on 12/04/2014 for a 28 day supply. Goal is to have enough medicine so that 80% or more of the days are covered each year. Next Step: Due to potential high cost barriers, typewriter mechanic contacted patient by Kannuu message to assess if eligible for financial assistance through Medicare Extra Help, NovoNordisk NovoCares (Ozempic). If cost is a concern, noting that if eligible and interested in switching to Ozempic from Mounjaro, providersapproval will be required. Anastasiia Morris CPhT Medication Single Fold Machine Operator [facility] Medical [facility] ([facility]) & Accountable Care Organization (ACO) documented in this encounter Plan of Treatment Not on file documented as of this encounter Visit Diagnoses Not on filedocumented in this encounter Care Teams Acting Professor Relationship Specialty Start Date End Date Varun Jenkins NP [address] [place] [id number] PCP - General Nurse Practitioner 07/15/23 documented as of this encounter
--- OUTSIDE RECORDS SUMMARY | 2025-03-10 16:32 | XMS_ITS | Encounter Summary ---
Author Organization [facility] Address [address] [place] [address] Phone Care Team Providers Care Greens Laborer Name Role Phone Varun Jenkins APRN, CNP Unavailable Varun Jenkins APRN, LISA Primary Care Pr ovider Prabhu Mathew MD Unavailable Christian Lau MD Unavailable [phone] Reason for Visit * Reason Comments Medication Refill Encounter Details Date Type Department Care Team (Late st Contact Info) Description 04/29/2023 Refill [facility] Medical [facility] - Family Medicine [facility] [address] [place] [phone] Varun Jenkins APRN, STAFF ELECTRICAL ENGINEER #[address] [address] Medication Refill Social History Tobacco Use Types Packs/Day Years Used Date Smoking Tobacco: Former Smokeless Tobacco: Never Alcohol Use Standard Drinks/Week Comments Never 0 (1 standard drink = 0.6 oz pur e alcohol) PHQ-2 Answer Date Recorded Total Score - Questions 1-9 0 10/29 Education Answer Date Recorded What is the highest level of school you have completed or the highest degree you have received? Bachelor's degree (e.g., BA, AB, BS) 01/20/2023 Sexually Active Control Partners Comments Yes Sex and Gender Information Value Date Recorded Sex Assigned at Not on file Legal Sex Male 3:05 PM INK BLENDER Gender Identity Not on file Sexual Orientation Not on file COVID-19 Exposure Response Date Recorded In the last 10 days, have yo u been in contact with someone who was confirmed or suspected to have Coronavirus/COVID-19? No / Unsure 04/26/2023 10:00 AM CDT documented as of this encounter Miscellaneous Notes * Telephone Encounter - Priti Vieira RN - 04/30/2023 12:22 PM CDT The original prescription was discontinued on 01/29/2022 by Varun Jenkins APRN, CNP for thefollowing reason: Dose adjustment documented in this encounter Plan of Treatment Upcoming Encounters Date Type Department Care Team (Late st Contact Info) Description 03/19/2025 10:00 AM CDT Office Visit [facility] - Family Medicine [facility] [address] [place] [address] Varun Jenkins APRN, CNP #[address] [address] documented as of this encounter Visit Diagnoses Diagnosis Type 2 diabetes mellitus with diabetic polyneuropathy, without long-term current use of insulin (HCC) documented in this encounter Care Teams Greens Laborer Relationship Specialty Start Date End Date Varun Jenkins APRN, LISA #[address] [address] PCP - General Advanced Practice Nurse 11/25/21 Varun Jenkins APRN, CNP #[address] [address] Nurse Practitioner Advanced Practice Nurse 11/25/21 Prabhu Mathew MD [address] [address] Consulting Physician Endocrinology 04/29/22 Christian Lau MD #2 [place] [phone] Consulting Physician Neurology 05/01/22 documented as of this encounter
[2025-03-10 16:35] VITALS: PULSE 88
[2025-03-10] MEDS: ALPRAZolam (*CRX) 0.5 MG TABLET PO (16:44)
[2025-03-10 16:45] VITALS: PULSE 87; RESP 21; O2SAT 94
[2025-03-10 16:46] VITALS: PULSE 81; RESP 14; O2SAT 96
[2025-03-10 16:47] VITALS: BP 136/100; PULSE 82; RESP 20; O2SAT 96
--- NOTE | 2025-03-10 16:49 | ED.ARRPALP ---
HPI - Arrhythmia/Palpitations General Chief Complaint: Arrhythmia/Palpitations Stated Complaint: chest pain Time Seen by Provider: 03/10/25 16:35 Source: patient Mode of arrival: ambulatory Limitations: no limitations History of Present Illness HPI narrative: this is a 39-year-old male with history of anxiety takes Ativan as needed presents after he had stressful of life event, and feels like as chest is heavy and can not take a deep breath with some sensation of racing heart. No chest pain no shortness of breath no abdominal pain no fever chills no nausea vomiting. complaint: heart racing Onset (ago): hour(s) Duration: intermittent Severity: mild Context: occurred during rest Related Data Allergies Allergy/AdvReac Type Severity Reaction Status Date / Time No Known Allergies Allergy Mild Verified 03/10/25 16:39 Review of Systems Review of Systems: All systems reviewed & are unremarkable except as noted in HPI and below PMFSH Past Medical History Medical History Anxiety Exam Const: General: healthy appearing and no acute distress Nutritional Appearance: well nourished Orientation/consciousness: patient oriented x3 Limitations: no limitations Neck: Neck: normal visual inspection and no lymphadenopathy Chest: Chest palpation & inspection: normal inspection of the chest Resp: Effort & Inspection: normal respiratory effort Auscultation: clear to auscultation bilaterally Cardio: Rate: regular rate Rhythm: regular rhythm GI: GI Palp: Yes Soft to palpation Auscultation: normal bowel sounds : General: Yes bladder normal to palpation Neuro: General: patient oriented x3, moves all extremities, no meningeal signs and no focal motor deficits Extrem: General: normal to inspection, no clubbing, cyanosis or edema and no pedal edema Psych: Affect: Anxious affect present Course Course Emergency Course: patient with anxiety/panic attack I had a normal EKG with normal sinus rhythm, patient given a dose of p.o. Xanax. Vital Signs Vital signs: Vital Signs Temperature 36.8 C 03/10/25 16:29 Pulse Rate 92 03/10/25 16:29 Respiratory Rate 16 03/10/25 16:29 Blood Pressure 137/98 H 03/10/25 16:29 Pulse Oximetry 97 03/10/25 16:29 Oxygen Delivery Room Air 03/10/25 16:29 Temperature 36.8 C 03/10/25 16:29 Pulse Rate 92 03/10/25 16:29 Respiratory Rate 16 03/10/25 16:29 Blood Pressure 137/98 H 03/10/25 16:29 Pulse Oximetry 97 03/10/25 16:29 Oxygen Delivery Room Air 03/10/25 16:29 Critical Care Time Critical Care Time Critical Care Time: No Discharge Plan Discharge Clinical Impression: Anxiety, Panic attack Patient Disposition: Home Condition: Stable Instructions: Antibiotic Form, Anxiety (ED), Panic Attack (ED) Additional Instructions: advised patient to take medication as prescribed and to follow with primary care physician within 1 week for further evaluation treatment. Patient Language: Azeri Prescriptions: New alprazolam [Xanax] 0.5 mg tablet 0.5 mg PO BID PRN (Reason: anxiety) Qty: 20 0RF Follow-up/Referrals: UNKNOWN,DOCTOR [Primary Care Provider] - Time of Disposition: 17:17
--- OUTSIDE RECORDS SUMMARY | 2025-03-10 17:11 | XMS_ITS | Clinical Summary ---
Author Organization [facility] Address [address] [place] [address] Phone Care Team Providers Care Gleason Operator Name Role Phone Varun Jenkins APRN, LISA Unavailable Varun Jenkins APRN, ELEMENTARY SUPERVISOR Primary Care Pr ovider Prabhu Mathew MD Unavailable Christian Lau MD Unavailable [phone] Allergies Active Allergy Reactions Criticality Noted Date Comments Bupropion Rash Medium 08/26/2015 Medications Blood Glucose Monitoring Suppl DeviceIndications :Type 2 diabetes mellitus with hyperglycemia, without long-term current use of insulin ([facility]) Diagnosis: Diabetes type 2 Blood testing frequency: once a day E11.65 1 Each 12/02/19 22 Active Glucose Blood StripIndications: Type 2 diabetes mellitus with hyperglycemia, without long-term current use of insulin ([facility]) Diagnosis: Diabetes type 2 Blood testing frequency: once a day E11.65 100 Strip 3 12/02/19 22 Active Lancets MiscIndications:T ype 2 diabetes mellitus with hyperglycemia, without long-term current use of insulin ([facility]) Use to test blood sugar once daily [...] Care Team Description 02/08/2025 MyChart RX Renewal [facility] [address] [place] [phone] Varun Jenkins, SOCIAL WORK LECTURER, ELEMENTARY SUPERVISOR Medication Renewal Reviewed 01/08/2025 MyChart RX Renewal [facility] [address] [place] [phone] Varun Jenkins APRN, LISA Medication Renewal Reviewed 01/02/2025 Refill [facility] [place] [place] [address] [place] [address] Varun Jenkins APRN, LISA Medication Refill 12/12/2024 MyChart RX Renewal [facility] [place] [place] [address] [place] [address] Varun Jenkins APRN, LISA Medication Renewal Reviewed [...] drink = 0.6 oz pur e alcohol) [facility] Utilities Answer Date Recorded In the [...] declined 10/03/2024 How often do you attend scientology or taoist serv ices? Patient declined 10/03/2024 Do you belong to any clubs o r organizations such as scientology groups, unions, fraternal or athletic groups, or [...] Total Score - Questions 1-9 0 10/28 [facility] - [...] place to sleep or slept in a halfway (including now)? No 10/05/2023 Housing Stability Vital [...] were you homeless or living in a halfway (including now)? Patient declined 10/03/2024 Education Answer Date Recorded What is the highest level of school you have completed or the highest degree you have received? Bachelor's degree (e.g., BA, AB, BS) 01/20/2023 Sexually Active Control Partners Comments Yes Sex and Gender Information Value Date Recorded Sex Assigned at Not on file Legal Sex Male 3:05 PM PROCESS CHEMIST Gender Identity Not on file Sexual Orientation [...] Group - Family Medicine - [place] [address] [place] [address] Varun Jenkins APRN, ELEMENTARY SUPERVISOR #[address] [address] Health Maintenance Due Date Last Done Comments [...] Results * (ABNORMAL) Comprehensive Metabolic Panel (Cmp) [id number] (01/26/2023 10:35 AM CDT) SODIUM 140 136 - 144 mmol/L 01/26/2023 11:01 AM CDT [facility] POTASSIUM 3.8 3.5 - 5.1 mmol/L 01/26/2023 11:01 AM CDT [facility] CHLORIDE 102 100 - 110 mmol/L 01/26/2023 11:01 AM CDT [facility] CO2, VENOUS 26 22 - 32 mmol/L 01/26/2023 11:01 AM CDT [facility] ANION GAP 15.8 8.0 - 20.0 mmol/L 01/26/2023 11:01 AM CDT [facility] GLUCOSE 126(H) 70 - 99 mg/dL 01/26/2023 11:01 AM CDT [facility] BUN 15 6 - 20 mg/dL 01/26/2023 11:01 AM CDT [facility] CREATININE, BLOOD 1.05 0.80 - 1.30 mg/dL 01/26/2023 11:01 AM CDT [facility] BUN/CREATININE RATIO 14 12 - 20 ratio 01/26/2023 11:01 AM CDT [facility] TOTAL PROTEIN 7.2 6.0 - 8.3 g/dL 01/26/2023 11:01 AM [facility] ALBUMIN 4.1 3.5 - 5.2 g/dL 01/26/2023 11:01 AM [facility] Comment: The colormetric methods used for the determination of Albumin may lead to falsely elevated test results in patients suffering from renal failure or insufficiency due to interference with other proteins. A/G RATIO 1.3 1.0 - 2.0 01/26/2023 11:01 AM T [facility] CALCIUM 8.7(L) 8.9 - 10.3 mg/dL 01/26/2023 11:01 AM [facility] T BILI 1.3(H) <=1.2 mg/dL 01/26/2023 11:01 AM [facility] SGOT (AST) 25 <=40 U/L 01/26/2023 11:01 AM [facility] SGPT (ALT) 29 <=41 U/L 01/26/2023 11:01 AM [facility] ALKALINE PHOSPHATASE 62 40 - 130 U/L 01/26/2023 11:01 AM [facility] GFR, ESTIMATED >60 >=60 01/26/2023 11:01 AM [facility] Comment: Creatinine Clearance is the preferred criteria for selecting drug dose adjustments in renally impaired patients. The GFR is provided as additional pertinent clinical information. GFR is reported in mL/min/1.73 sq m. Calculation based on the Chronic Kidney Disease Epidemiology Collaboration (CKD- EPI) equation refit without adjustment for race. GFR, EST. >60 >=60 01/26/2 023 11:01 AM T [facility] GFR, EST. NONAFRICAN >60 >=60 01/26/2023 11:01 AM [facility] Blood Venipuncture / Unknown 01/26/2023 10:35 AM CDT 01/26/2023 10:35 AM CDT Vidhya Sharpe SOCIAL WORK LECTURER, ELEMENTARY SUPERVISOR CHEMISTRY ORDERABLES Final Result [facility] [address] [place] [address] * HEMOGLOBIN A1C W/ ESTIMATED GLUCOSE (11/13/2022 11:09 AM CDT) HGB-A1C 5.1 4.0 - 6.0 % 11/13/2022 12:14 PM CDT [facility] Est Average Glucose 99.7 mg/dL 11/13/2022 12:14 PM CDT [facility] Blood Venipuncture / Unknown 11/13/2022 11:09 AM CDT 11/13/2022 11:36 AM CDT Narrative [facility] - 11/13/2022 12:14 PM CDT HEMOGLOBIN A1C: DIABETIC PATIENTS: WELL-CONTROLLED: 6.2 - 7.0 INTERMEDIATE WELL-CONTROLLED: 7.0 - 9.0 POORLY-CONTROLLED: >9.0 Varun Jenkins SOCIAL WORK LECTURER, ELEMENTARY SUPERVISOR CHEMISTRY ORDERA BLES Final Result Performing Organization Address City/[facility] Co de Phone Number [facility] [address] [place] [address] from Last 3 Months or Most Recently Relevant to Health Maintenance Insurance MEDICAID [place] MEDICARE C [facility] MEDICARE C [employer] [place] [facility] MEDICARE C [facility] Care Teams Gleason Operator Relationship Specialty Start Date End Date Varun Jenkins APRN, ELEMENTARY SUPERVISOR #[address] [address] PCP - General Advanced Practice Nurse 11/25/21 Varun Jenkins APRN, ELEMENTARY SUPERVISOR #2 [facility] [address] [place], [place] [phone] Nurse Practitioner Advanced Practice Nurse 11/25/21 Prabhu Mathew MD #2 [facility] [address] [place] [address] Consulting Physician Endocrinology 04/29/22 Christian Lau MD [address] [place] [address] Consulting Physician Neurology 05/01/22
--- OUTSIDE RECORDS SUMMARY | 2025-03-10 17:11 | XMS_ITS | Encounter Summary ---
Author Organization [facility] Address [address] [place] [address] Phone Care Team Providers Care Travel Attendants Name Role Phone Varun Jenkins APRN, CNP Unavailable Varun Jenkins APRN, LISA Primary Care Pr ovider Prabhu Mathew MD Unavailable Christian Lau MD Unavailable [phone] Reason for Visit * Reason Comments Medication Refill Encounter Details Date Type Department Care Team (Late st Contact Info) Description 04/05/2022 Refill [facility] Medical Group - Family Medicine [facility] [address] [place] [phone] Varun Jenkins APRN, RECONCILIATION COORDINATOR #[address] [address] Medication Refill Social History Tobacco Use Types [...] on file Legal Sex Male 3:05 PM WIRE SAWYER Gender Identity Not on file Sexual Orientation [...] Visit [facility] - Family Medicine [facility] [address] [place] [address] Varun Jenkins APRN, CNP #[address] [address] documented as of this encounter Visit Diagnoses Diagnosis Type 2 diabetes mellitus with diabetic polyneuropathy, without long-term current use of insulin (HCC) documented in this encounter Care Teams Travel Attendants Relationship Specialty Start Date End Date Varun Jenkins APRN, CNP #[address] [address] PCP - General Advanced Practice Nurse 11/25/21 Varun Jenkins APRN, CNP #[address] [address] Nurse Practitioner Advanced Practice Nurse 11/25/21 Prabhu Mathew MD #[address] [address] Consulting Physician Endocrinology 04/29/22 Christian Lau MD #[address] [place] [address] Consulting Physician Neurology 05/01/22 documented as of this encounter
--- OUTSIDE RECORDS SUMMARY | 2025-03-10 17:11 | XMS_ITS | Encounter Summary ---
Author Organization [facility] Address [address] [place] [address] Care Team Providers Care Wet Primer Powder Blender Name Role Phone Varun Jenkins CIRCUIT CLERK Primary Care Provider Reason for Visit * Reason Comments ACO Quality Med Management Encounter Details Date Type Department Care Team (Late st Contact Info) Description 01/09/2025 ACO Medication Access [facility] Accountable Care Organization [address] [place] [address] Anastasiia Morris CPhT [address] [facility] [address] [place] [address] Social History Tobacco Use Types Packs/Day Years Used Date Smoking Tobacco: Never Sex and Gender Information Value Date Recorded Sex Assigned at Not on file Legal Sex Male 7:16 PM MUSIC PROFESSOR Gender Identity Not on file Sexual Orientation [...] Step: Due to potential high cost barriers, press writer contacted patient by [facility] message to assess if eligible for financial assistance through Medicare Extra Help, NovoNordisk NovoCares (Ozempic). If cost is a concern, noting that if eligible and interested in switching to Ozempic from Mounjaro, providersapproval will be required. Anastasiia Morris CPhT Medication Pastry Cook Helper [facility] Medical Group ([facility]) & Accountable Care Organization (ACO) documented in this encounter Plan of Treatment Not on file documented as of this encounter Visit Diagnoses Not on filedocumented in this encounter Care Teams Wet Primer Powder Blender Relationship Specialty Start Date End Date Varun Jenkins NP [address] [place] [id number] PCP - General Nurse Practitioner 07/15/23 documented as of this encounter
--- OUTSIDE RECORDS SUMMARY | 2025-03-10 17:11 | XMS_ITS | Clinical Summary ---
Author Organization [facility] Address [address] [place] [address] Care Team Providers Care Knot Saw Operator Name Role Phone Williams Reddy DO Unavailable Varun Jenkins BUTTON AND BUCKLE MAKER-STOREROOM KEEPER Primary Care Pro vider Source Comments [facility],non-owned Affiliates and Associated Physician Practices is amultiple site organization consisting of ambulatory clinics and hospital sitesin [place], [place], [place] and [place]. This disclosure is being madepursuant to the Care Everywhere program and may not contain all information available regarding this patient. Last updated 18.[facility] Allergies Active Allergy Reactions Criticality Noted Date [...] 12/02/19 22 Active Blood Glucose Monitoring Suppl (Status Work Ltd [employer] REFLECT) w/Device KIT USE TEST ONCE DAILY [...] this topic Medical Devices Implanted Type Area Javascript Programmer Device Identifier Shelf Expiration Date Model / Serial / Lot Chava Push Comp 2.9mm Implanted:Qty: 2 on 10/15/2014 by Flo Silverman MD at [facility] Left: Shoulder [employer] 03/30/2016 [id number] / / [id number] Anch Sut Swvl Chava Tenod Biocomp 7 X 19.1 Implanted:Qty: 1 on 10/15/2014 by Flo Silverman MD at [facility] Left: Shoulder [employer] 06/30/2016 [id number]-[id number] -[id number] / / [id number] Procedures Procedure Name Priority Date/Time Associated Diagnosis [...] LDL-C. Ramon ORELLANA et al. SADIA. 2013;310(19): 9269-2931 (http://education.Complete Solar.Mirapoint Software/faq/YRW390) CHOL/HDLC RATIO 4.5 <5.0 (calc) [facility] Non HDL Cholesterol 141(H) <130 mg/dL (calc) [facility] Comment: For patients with diabetes plus 1 major ASCVD risk factor, treating to a non-HDL-C goal of <100 mg/dL (LDL-C of <70 mg/dL) is considered a therapeutic option. Test Performed at: [facility] [address] [place] [address] MARGARET REYES DO,MPH Blood BLOOD SPECIMEN / Unknown 01/13/2021 8:08 AM CDT 01/13/2021 8:08 AM CDT us Dalton Peraza MD LAB - CHEMISTRY ORDERABLES F inal Result [facility] [address] [place] [address] from Last 3 Months or Most Recently Relevant to Health Maintenance Insurance [facility] MANAGED MEDICARE [place]V [place] [id number] MEDICAID - OUT OF STATE [facility] MANAGED MEDICARE ADV [place] [id number] [facility] [employer] Address: SHAYNA VillatoroB ATTENTION 04JBC JOSE C ABDULAZIZ [address] [facility] Care Teams Knot Saw Operator Relationship Specialty Start Date End Date Varun Jenkins APRN-LISA PCP - General 02/05/22 Williams Reddy DO Neurological Surgery 06/26/15
--- OUTSIDE RECORDS SUMMARY | 2025-03-10 17:11 | XMS_ITS | Encounter Summary ---
Author Organization [facility] Address [address] [place] [address] Phone Care Team Providers Care Inventory Specialist Name Role Phone Varun Jenkins APRN, CNP Unavailable Varun Jenkins APRN, LISA Primary Care Pr ovider Prabhu Mathew MD Unavailable Christian Lau MD Unavailable [phone] Reason for Visit * Reason Comments Medication Refill Encounter Details Date Type Department Care Team (Late st Contact Info) Description 04/29/2023 Refill [facility] Medical Group - Family Medicine [facility] #[address] [place] [phone] Varun Jenkins APRN, COGNOS DEVELOPER #[address] [address] Medication Refill Social History Tobacco Use Types [...] on file Legal Sex Male 3:05 PM INSIDE WIRER Gender Identity Not on file Sexual Orientation [...] Visit [facility] #[address] [place] [address] Varun Jenkins APRN, CNP #[address] [address] documented as of this encounter Visit Diagnoses Diagnosis Type 2 diabetes mellitus with diabetic polyneuropathy, without long-term current use of insulin (HCC) documented in this encounter Care Teams Inventory Specialist Relationship Specialty Start Date End Date Varun Jenkins APRN, LISA #[address] [address] PCP - General Advanced Practice Nurse 11/25/21 Varun Jenkins APRN, CNP #[address] [address] Nurse Practitioner Advanced Practice Nurse 11/25/21 Prabhu Mathew MD #[address] [address] Consulting Physician Endocrinology 04/29/22 Christian Lau MD #[address] [place] [address] Consulting Physician Neurology 05/01/22 documented as of this encounter
--- OUTSIDE RECORDS SUMMARY | 2025-03-10 17:11 | XMS_ITS | Referral Summary ---
Author Organization [facility] Address [address] [place] [address] Care Team Providers Care Switchboard Operator Name Role Phone Varun Jenkins NP Primary Care Provider Encounters Date Type Department Care Team Description 03/09/2025 1:40 PM CDT Office Visit [facility] Urology [address] [facility] [address] [place] [address] Rogelio Main MD Male infertility 02/12/2025 9:00 AM CDT Clinical Support [facility] Reproductive Endocrinology Lab [address] [place] [address] [address] [place] [address] Visit for semen analysis 02/12/2025 7:09 AM CDT - 02/12/2025 11:59 PM CDT Hospital Encounter [address], [address] [place] [address] Discharge Disposition: Discharge to home or self care 01/09/2025 ACO Medication Access [facility] Accountable Care Organization [address] [place] [address] Anastasiia Morris CPhT 12/25/2024 6:58 AM CDT - 12/25/2024 11:59 PM CDT Hospital Encounter [address], Suite [facility] [place] [address] Discharge Disposition: Discharge to home [...] on file Legal Sex Male 7:16 PM NIP WRAPPER Gender Identity Not on file Sexual Orientation Not on file Last Filed Vital Signs Vital Sign Reading Time Taken Comments Blood Pressure 114/77 03/09/2025 1:13 PM CDT Pulse 62 03/09/2025 1:13 PM CDT Temperature 36.8 C (98.2 F) 07/15/2023 5:51 PM NIP WRAPPER Respiratory Rate 16 07/15/2023 5:51 PM NIP WRAPPER Oxygen Saturation 97% 07/15/2023 5:51 PM NIP WRAPPER Inhaled Oxygen Concentration - - Weight 113.4 [...] Final Result from Last 3 Months Insurance [place] [facility] MEDICARE [facility] Address: [address] [address] [place] [address] [facility] MEDICARE [facility] Address: [address] [address] [place] [address] Care Teams Switchboard Operator Relationship Specialty Start Date End Date Varun Jenkins NP [address] [place] [address] PCP - General Nurse Practitioner 07/15/23
--- OUTSIDE RECORDS SUMMARY | 2025-03-10 17:11 | XMS_ITS | Encounter Summary ---
Author Organization [facility] Address [address] [facility] [address] [place] [address] Phone Care Team Providers Care Lunch Wagon Operator Name Role Phone Varun Jenkins RECEPTION Primary Care Provider Reason for Visit * Reason Comments Infertility * Consultation (Routine) - Authorized Specialty Diagnoses / Procedures Referred By Srinivas cali Referred To Contact Urology Diagnoses Male infertility Felipe Gonzales MD PhD Phone: tel: fax: [facility] (All Locations) Referral ID Status Reason Start Date Expiration Date Visits Requested Visits Authorized [id number] Authorized Specialty Services Required 01/09/2025 08/11/[phone] Encounter Details Date Type Department Care Team (Late st Contact Info) Description 03/09/2025 1:40 PM CDT Office Visit [facility] U[facility] Medical Office Building [address] [place] [address] Rogelio Main MD [address] [facility] [place] [address] Male infertility Social History Tobacco Use Types Packs/Day Years Used Date Smoking Tobacco: Former Cigarettes Tobacco Cessation:Counseling Given: Not Answered Sex and Gender Information Value Date Recorded Sex Assigned at Not on file Legal Sex Male 7:16 PM TELETYPIST Gender Identity Not on file Sexual Orientation [...] 03/09/2025 documented in this encounter Care Teams Lunch Wagon Operator Relationship Specialty Start Date End Date Varun Jenkins NP [address] [place] [address] PCP - General Nurse Practitioner 07/15/23 documented as of this encounter
--- OUTSIDE RECORDS SUMMARY | 2025-03-10 17:11 | XMS_ITS | Clinical Summary ---
Author Organization [facility] Address [address] [place] [address] Care Team Providers Care Circulation Director Name Role Phone Varun Jenkins NP Primary [...] Description 03/09/2025 1:40 PM CDT Office Visit [facility] Urology [address] [facility] Medical Office Building [address] [place] [address] Rogelio Main MD Male infertility 02/12/2025 9:00 AM CDT Clinical Support [facility] [address] [place] [phone] Visit for semen analysis 02/12/2025 7:09 AM CDT - 02/12/2025 11:59 PM CDT Hospital Encounter [address], [address] [id number] Discharge Disposition: Discharge to home or self care 01/09/2025 ACO Medication Access [facility] Accountable Care Organization [address] [place] [address] Anastasiia Morris CPhT 12/25/2024 6:58 AM CDT - 12/25/2024 11:59 PM CDT Hospital Encounter [address], [address] [id number] Discharge Disposition: Discharge to home or self care from Last 3 Months Social History Tobacco Use Types Packs/Day Years Used Date Smoking Tobacco: Former Cigarettes Tobacco Cessation:Counseling Given: Not Answered Sex and Gender Information Value Date Recorded Sex Assigned at Not on file 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 Gender Identity Not on file Sexual Orientation Not on file Obstetrics History Last Filed Vital Signs Vital Sign Reading Time Taken Comments Blood Pressure 114/77 03/09/2025 1:13 PM CDT Pulse 62 03/09/2025 1:13 PM CDT Temperature 36.8 C (98.2 F) 07/15/2023 5:51 PM PICKLING MACHINE OPERATOR Respiratory Rate 16 07/15/2023 5:51 PM PICKLING MACHINE OPERATOR Oxygen Saturation 97% 07/15/2023 5:51 PM PICKLING MACHINE OPERATOR Inhaled Oxygen Concentration - - Weight 113.4 [...] Final Result from Last 3 Months Insurance [facility] MEDICARE ADVANTAGE [facility] MEDICARE ADVANTAGE Care Teams Circulation Director Relationship Specialty Start Date End Date Varun Jenkins NP 2 [facility] [address] PCP - General Nurse Practitioner 07/15/23
[2025-03-10 17:15] VITALS: BP 136/80; PULSE 75; RESP 18; O2SAT 100
== END 2025-03-10 17:15 | disposition home or self-care (01) ==
PROVIDERS: Emergency Provider Emergency Medicine
DX: F41.0 Panic disorder [episodic paroxysmal anxiety] (principal); F41.9 Anxiety disorder, unspecified
CPT/HCPCS: 93005; 99284; A9270

== ENCOUNTER 2025-08-12 13:50 | Emergency (ER) | payer OTHER, SELFPAY ==
--- NOTE | ~2025-08-12 | CT_ITS ---
EXAMINATION: CT abdomen pelvis wo con, 08/12/2025 14:30 PLAYROOM ATTENDANT HISTORY: b/l flank pain, nausea x2 days; worsening COMPARISON: No comparisons available. TECHNIQUE: CT scan of the abdomen and pelvis was performed without IV contrast. One or more of the following dose reduction techniques were used: automated exposure control, adjustment of the mA and/or kV according to patient size, use of iterative reconstruction technique. Unless otherwise stated, incidental findings do not require dedicated follow up imaging FINDINGS: CT abdomen: LUNG BASES: The lung bases are clear. The visualized portions of the heart and pericardium are unremarkable. LIVER: Moderate hepatic steatosis. SPLEEN: Unremarkable, no splenomegaly. KIDNEYS: Right Kidney: Unremarkable. No calculi. No hydronephrosis. Left Kidney: Unremarkable. No calculi. No hydronephrosis ADRENAL GLANDS: Unremarkable. PANCREAS: There are inflammatory changes noted surrounding the pancreatic head with edema of the pancreatic head. The remaining pancreas appears atrophic. GALLBLADDER/BILIARY: Unremarkable. No biliary dilatation. STOMACH AND ESOPHAGUS: Visualized stomach and esophagus within normal limits. BOWEL/MESENTERY: Moderate fecal content, no colitis or diverticulitis. Post appendectomy. Remaining mesentery normal. No thickened or dilated loops of small bowel. ADENOPATHY/RETROPERITONEUM: No lymphadenopathy. AORTA/VASCULATURE: Normal caliber aorta. FREE FLUID OR FREE AIR: None. CT pelvis: SOLID ORGANS/REPRODUCTIVE: Unremarkable. BLADDER: Within normal limits. OSSEOUS STRUCTURES: Postsurgical changes in the lumbar spine. OVERLYING SOFT TISSUES: Unremarkable. IMPRESSION: Acute pancreatitis. Follow-up recommended to assess resolution Reviewed, dictated and finalized at location P. ROOM ATTENDANT
[2025-08-12 13:50] VITALS: BP 127/89; PULSE 107; RESP 20; TEMP 37.2; O2SAT 97
--- NOTE | 2025-08-12 14:15 | ED_ITS ---
HPI - Male Genitourinary General Chief complaint: Urogenital-Male Stated complaint: flank pain Time Seen by Provider: 08/12/25 13:59 Source: patient Mode of arrival: ambulatory Limitations: no limitations History of Present Illness HPI Narrative: 40-year-old male with a history of anxiety, chest pain status post negative stress test 2 years ago, hemochromatosis on periodic therapeutic phlebotomy presents to the ED with 2 history --bilateral flank pain radiating to the testicle. The pain is intermittent. No exacerbating or relieving factors. --urine is dark colored. No dysuria or hematuria --increased frequency of micturition --increasing tiredness. --low-grade fever The patient had a therapeutic phlebotomy done yesterday and had an H&H which was noted to be 17.3 and 50.8. Patient has a history of L4-S1 spinal fusion in 2012. He fell from a height and had compression fracture and disc prolapse requiring spinal fusion. MD Complaint: other (Patient has bilateral flank pain and bilateral iliac fossa pain. No testicular pain.) Onset (ago): day(s) (Two days) Duration: intermittent Location: right inguinal region, left inguinal region, right flank and left flank Radiation: right testicle and left testicle Severity: severe Quality: aching Relieving factors: none Exacerbating factors: none Related Data Allergies Allergy/AdvReac Type Severity Reaction Status Date / Time No Known Allergies Allergy Mild Verified 08/12/25 13:59 Review of Systems 2 Review of Systems: All systems reviewed & are unremarkable except as noted in HPI and below Constitutional: Constitutional: Reports as per HPI, Reports no additional constitutional complaints and Reports anorexia Eyes: Eyes: Reports as per HPI and Reports no additional eye complaints ENT: Reports system reviewed and no additional complaints, except as documented and Reports as per HPI Cardiovascular: Cardiovascular: Reports as per HPI and Reports no additional cardiovascular complaints Respiratory: Respiratory: Reports as per HPI and Reports no additional respiratory complaints Gastrointestinal: Gastrointestinal: Reports as per HPI, Reports no additional gastrointestinal complaints and Reports abdominal pain Genitourinary: Genitourinary: Reports oliguria and Reports flank pain Musculoskeletal: Musculoskeletal: Reports no additional musculoskeletal complaints and Reports as per HPI Integumentary/Breasts: Skin/Breast: Reports system reviewed and no additional complaints, except as docu and Reports as per HPI Neurologic: Reports system reviewed and no additional complaints, except as documented and Reports as per HPI Psychiatric: Psychiatric: Reports no additional psychiatric complaints, Reports as per HPI and Reports anxiety Endocrine: Endocrine: Reports no additional endocrine complaints and Reports as per HPI Hematologic/Lymphatic: Hematologic/Lymphatic: Reports no additional hematologic/lymphatic complaints and Reports as per HPI Comments: Increased blood counts and is on periodic phlebotomy Allergic/Immunologic: Allergic/Immunologic: Reports no additional allergic/immunologic complaints [facility] Past Medical History Medical History (Updated 08/12/25 @ 15:36 by Андрей Don MD) Hemochromatosis Anxiety Exam 2 Narrative: Pulse of 107. Blood pressure 127/89. Oxygen saturation of 97% on room air with a respiratory rate of 20. Const: General: healthy appearing and comfortable Nutritional Appearance: a verage body habitus and well nourished Orientation/consciousness: oriented to person, oriented to place and oriented to time Limitations: no limitations HENMT: Head: normal to inspection, No palpable skull fracture present, normocephalic and atraumatic Ears: hearing grossly normal bilaterally F bryan/Nose/Sinus: Normal external nose present and Normal nares present Face and sinus: normal facial exam, sinuses nontender and face symmetric Mouth: Y es Normal oral and palatal mucosa present, Yes lip normal and Yes tongue normal Throat: posterior oropharynx normal Eyes: General: appearance normal, both eyes and all related structures V isual Smith: normal visual smith by confrontation Neck: Neck: normal visual inspection Thyroid: thyroid normal Lymphatic: no lymphadenopathy noted Chest: Chest palpation & inspection: normal inspection of the chest Resp: Effort & Inspection: normal respiratory effort Auscultation: clear to auscultation bilaterally Cardio: Jugular venous distension: no JVD Palpation: normal PMI Rate: r egular rate Rhythm: regular rhythm Heart sounds: S1 normal heart sound present and S2 normal heart sound present GI: Inspection: normal to inspection Auscultation: normal bowel sounds O ther: Tenderness bilateral CVA angles and bilateral lower abdomen. No rigidity/rebound. : General: Yes CVA tenderness Penis: Yes normal penis Scrotum: scrotum normal Testes: Testes normal Back/Spine/Pelvis: Back: CVA tenderness Skin: General skin exam: normal color and no rashes or lesions noted Neuro: General: oriented to person, oriented to place and oriented to time Cranial nerves: Yes CN's II-XII intact bilaterally Cognition (Neuro): normal cognition Extrem: General: normal to inspection, full ROM and capillary refill normal Psych: Appearance: grossly normal and well kempt Course Course Emergency Course: Bilateral flank pain/lower abdominal pain with radiation to the testicles. Patient had a history of L4-S1 fusion in 2012 after he fell through the floor at the workplace. Patient has increased frequency of micturition. No dysuria or hematuria. No abnormality on testicular examination. Low-grade fever History of hemochromatosis requiring phlebotomy periodically Vital Signs Vital signs: Vital Signs Temperature 37.2 C 08/12/25 13:50 Pulse Rate 107 H 08/12/25 13:50 Respiratory Rate 20 08/12/25 13:50 Blood Pressure 127/89 08/12/25 13:50 Pulse Oximetry 97 08/12/25 13:50 Oxygen Delivery Room Air 08/12/25 13:50 Temperature 37.0 C 08/12/25 15:33 Pulse Rate 91 08/12/25 15:33 Respiratory Rate 20 08/12/25 15:33 Blood Pressure 149/80 H 08/12/25 15:33 Pulse Oximetry 98 08/12/25 15:33 Oxygen Delivery Room Air 08/12/25 15:33 [facility] Narrative Medical decision making narrative: Bilateral flank pain with increased frequency of micturition--UA is unremarkable. CT of the abdomen and pelvis did not show any urinary abnormalities. CT revealed acute pancreatitis. The patient does not have any epigastric pain/tenderness. He has a normal lipase level. Unlikely to be acute pancreatitis. Advised the patient to take liquid diet for a tear to. Advised him to return to the ED is of if his abdominal pain worsens. Differential Diagnosis Differential Diagnosis: Peptic ulcer disease Lab Data [facility] Lab Attestation statement: I personally reviewed the patient's lab results. 08/12/25 14:24 08/12/25 14:24 Labs: Lab Results 08/12/25 08/12/25 Range/Units 14:20 14:24 WBC 13.4 H (4.8-10.8) K/mm3 RBC 5.98 (4.70-6.10) M/mm3 Hgb 17.1 (14.0-18.0) g/dL Hct 51.6 (40.0-54.0) % MCV 86.3 (78.0-102.0) fL MCH 28.6 (27.0-31.0) pg MCHC 33.1 (32-36) g/dL RDW 13.5 (11.6-14.4) % Plt Count 281 (150-420) K/mm3 MPV 10.5 (8.7-11.0) fl Immature Gran % (Auto) 0.4 H (0.0-0.0) % Neut % (Auto) 81.4 H (50.0-70.0) % Lymph % (Auto) 10.4 L (18.0-42.0) % Hendry % (Auto) 6.6 (2.0-11.0) % Eos % (Auto) 1.0 (1.0-6.0) % Baso % (Auto) 0.2 (0.0-1.0) % Lymph # (Auto) 1.40 (1.10-4.50) K/mm3 Hendry # (Auto) 0.89 (0.10-0.90) K/mm3 Eos # (Auto) 0.13 (0.02-0.50) K/mm3 Baso # (Auto) 0.03 (0.00-0.10) K/mm3 Abs Immat Gran (auto) 0.05 H (0.00-0.00) K/mm3 Absolute Neuts (auto) 10.90 H (1.70-7.20) K/mm3 Absolute Nucleated RBC 0.00 (0.00-0.00) K/mm3 Nucleated RBC % 0.0 (0-0.0) % Sodium 139 (137-145) mmol/L Potassium 3.9 (3.4-5.0) mmol/L Chloride 105 (98-107) mmol/L Carbon Dioxide 23 (22-30) mmol/L Anion Gap 11 (4-12) mmol/L BUN 10 (9-20) mg/dL Creatinine 0.89 (0.7-1.3) mg/dL Estim Creat Clear Calc 124 ml/min Estimated GFR > 60 (59 - ) Glucose 153 H (65-110) mg/dL Calculated Osmolality 290 (285-295) mOsm/kg Lactic Acid 2.0 (0.7-2.0) mmol/L Calcium 9.5 (8.4-10.2) mg/dL Total Bilirubin 1.2 (0.2-1.3) mg/dL AST 32 (17-59) U/L ALT 57 H (6-50) U/L Alkaline Phosphatase 72 (38-126) U/L Troponin I < 0.012 (0.000-0.034) ng/mL Total Protein 7.8 (6.3-8.2) g/dL Albumin 4.5 (3.5-5.1) g/dL Lipase 190 (23-300) U/L Urine Color Light yellow (Yellow) Urine Appearance Clear (Clear) Urine pH 6.5 (5.0-8.0) Ur Specific Elkins <= 1.005 L (1.010-1.020) Urine Protein Negative (Negative) Urine Glucose (UA) 3+ H (Negative) Urine Ketones 1+ H (Negative) Ur Blood (Man) Negative (Negative) Urine Nitrate Negative (Negative) Urine Bilirubin Negative (Negative) Urine Urobilinogen 2.0 H (0.2-1.0) mg/dL Leukocyte Esterase Rfl Negative (Negative) GERALD/UL Urine RBC None seen (0-2) /hpf Urine WBC None seen (0-3) /hpf Urine Bacteria None seen (None) /hpf Imaging Data Radiologist's impression: ITS Impressions Abdomen/Pelvis CT 08/12/25 15:00 IMPRESSION: Acute pancreatitis. Follow-up recommended to assess resolution Discharge Plan Discharge Clinical Impression: Anxiety, Bilateral flank pain Patient Disposition: Home Condition: Stable Instructions: Antibiotic Form Patient Language: Malay Prescriptions: No Action alprazolam [Xanax] 0.5 mg tablet 0.5 mg PO BID PRN (Reason: anxiety) Qty: 20 0RF Follow-up/Referrals: UNKNOWN,DOCTOR [Non-Staff] Time of Disposition: 15:36
--- OUTSIDE RECORDS SUMMARY | 2025-08-12 14:22 | XMS_ITS | Encounter Summary ---
Author Organization [facility] Healthcare Address [address] [place] [address] Care Team Providers Care Computer Support Specialist Name Role Phone Varun Jenkins INTERNATIONAL TRADE MANAGER Primary Care Provider Reason for Visit * Reason Comments ACO Quality Med Management Encounter Details Date Type Department Care Team (Late st Contact Info) Description 01/09/2025 ACO Medication Access [facility] Accountable Care Organization [address] [place] [address] Anastasiia Morris CPhT [address] [facility] [address] [place] [address] Social History Tobacco Use Types Packs/Day Years Used Date Smoking Tobacco: Never Sex and Gender Information Value Date Recorded Sex Assigned at Not on file 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 If cost is a concern, noting that if eligible and interested in switching to Ozempic from Mounjaro, providersapproval will be required. Anastasiia Morris CPhT Medication Dopster [facility] ([facility] & Accountable Care Organization (ACO) documented in this encounter Plan of Treatment Not on file documented as of this encounter Visit Diagnoses Not on filedocumented in this encounter Care Teams Computer Support Specialist Relationship Specialty Start Date End Date Varun Jenkins NP [address] [place] [id number] PCP - General Nurse Practitioner 07/15/23 documented as of this encounter
--- OUTSIDE RECORDS SUMMARY | 2025-08-12 14:22 | XMS_ITS | Encounter Summary ---
Author Organization [facility] Care Team Providers Care Paintings Restorer Name Role Phone Varun Jenkins APRN, CNP Unavailable Varun Jenkins APRN, CNP Primary Care Pr ovider Prabhu Mathew MD Unavailable Christian Lau MD Unavailable [phone] Encounter Details Date Type Department Care Team (Latest Contact Info) Description 08/11/2025 Travel Social History Tobacco Use Types Packs/Day Years Used Date Smoking Tobacco: Former Smokeless Tobacco: Never Alcohol Use Standard Drinks/Week Comments Never 0 (1 standard drink = 0.6 oz pur e alcohol) [facility] Utilities Answer Date Recorded In the past 12 months has [employer], gas, oil, or water company threatened [...] declined 10/03/2024 How often do you attend mu-ism or yarsani serv ices? Patient declined 10/03/2024 Do you belong to any clubs o r organizations such as mu-ism groups, unions, fraternal or athletic groups, or [...] Recorded Total Score - Questions 1-9 0 09/0 04/2025 [facility] ional Health - [...] place to sleep or slept in a care home (including now)? No 10/05/2023 Housing Stability [...] any time in the past 12 m onths, were you homeless or living in a care home (including now)? Patient declined 10/03/2024 Education Answer Date Recorded What is the highest level of school you have completed or the highest degree you have received? Bachelor's degree (e.g., BA, AB, BS) 01/20/2023 Sexually Active Control Partners Comments Yes Sex and Gender Information Value Date Recorded Sex Assigned at Not on file Legal Sex Male 3:05 PM PHARMACY OPERATIONS COORDINATOR Gender Identity Not on file Sexual Orientation Not on file documented as of this encounter Plan of Treatment Upcoming Encounters Date Type Department Care Team (Latest Contact Info) Description 08/13/2025 9:30 AM PHARMACY OPERATIONS COORDINATOR Clinical Support [facility] Oncology Services [address] [place] [address] Phuong Rosales PAC [address] [place] [address] Discharge Disposition: Discharged to home or Selfcare 08/27/2025 10:00 AM PHARMACY OPERATIONS COORDINATOR Clinical Support [facility] Oncology Services [address] [place] [address] 09/10/2025 9:30 AM PHARMACY OPERATIONS COORDINATOR Clinical Support [facility] Oncology Services [address] [place] [address] 10/08/2025 9:30 AM PHARMACY OPERATIONS COORDINATOR Clinical Support [facility] Oncology Services [address] [place] [phone] 02/04/2026 9:00 AM CDT Office Visit [facility] Oncology Services [address] [place] [phone] Phuong Rosales, [place]LIN [address] [place] [address] Discharge Disposition: Discharged to home or Selfcare documented as of this encounter Visit Diagnoses Not on filedocumented in this encounter Additional Health Concerns Assessment Noted Time PHQ-9 Depression Total Score: 0 05/08/20 25 10:49 AM CDT documented as of this encounter Care Teams Paintings Restorer Relationship Specialty Start Date End Date Varun Jenkins APRN, LISA #[address] [address] PCP - General Advanced Practice Nurse 11/25/21 Varun Jenkins APRN, LISA #[address] [address] Nurse Practitioner Advanced Practice Nurse 11/25/21 Prabhu Mathew MD #[address] [phone] Consulting Physician Endocrinology 04/29/22 Christian Lau MD [address] [place] [address] Consulting Physician Neurology 05/01/22 documented as of this encounter
--- OUTSIDE RECORDS SUMMARY | 2025-08-12 14:22 | XMS_ITS | Encounter Summary ---
Author Organization [facility] HealthCare Address [address] [place] [address] Phone Care Team Providers Care Family Resource Specialist Name Role Phone Varun Jenkins APRN, LISA Unavailable Varun Jenkins APRN, LISA Primary Care Pr ovider Prabhu Mathew MD Unavailable Christian Lau MD Unavailable [phone] Encounter Details Date Type Department Care Team (Latest Contact Info) Description 08/02/2025 Results Follow-Up [facility] Oncology Services [address] [place] [phone] Phuong Rosales Angelina, PAC [address] [place], [place] [phone] CBC WITH AUTO DIFFERENTIAL Social History Tobacco Use Types Packs/Day Years Used Date Smoking Tobacco: Former Smokeless Tobacco: Never Alcohol Use Standard Drinks/Week Comments Never 0 (1 standard drink = 0.6 oz pur e alcohol) [facility] Utilities Answer Date Recorded In the past 12 months has [employer], gas, oil, or water company threatened to [...] declined 10/03/2024 How often do you attend uatsdin or worship serv ices? Patient declined 10/03/2024 Do you belong to any clubs o r organizations such as uatsdin groups, unions, fraternal or athletic groups, or [...] Score - Questions 1-9 0 09/0 04/2025 [facility] of Occupat ional Health - Occupational Stress [...] place to sleep or slept in a fci (including now)? No 10/05/2023 Housing Stability Vital [...] any time in the past 12 m [facility], were you homeless or living in a fci (including now)? Patient declined 10/03/2024 Education Answer Date Recorded What is the highest level of school you have completed or the highest degree you have received? Bachelor's degree (e.g., BA, AB, BS) 01/20/2023 Sexually Active Control Partners Comments Yes Sex and Gender Information Value Date Recorded Sex Assigned at Not on file Legal Sex Male 3:05 PM BRIDGE OPERATOR SLIP Gender Identity Not on file Sexual Orientation Not on file documented as of this encounter Progress Notes * Phuong Rosales PAC - 08/02/2025 12:43 PM CST Please advise phlebotomy indicated would recommend tomorrow instead of waiting until Wednesday. Keep office visit Wednesday GE OPERATOR SLIP documented in this encounter Plan of Treatment Upcoming Encounters Date Type Department Care Team (Latest Contact Info) Description 08/13/2025 9:30 AM BRIDGE OPERATOR SLIP Clinical Support [facility] Oncology Services [address] [place] [address] Bobby Phuong Angelina, PAC [address] [place] [address] Discharge Disposition: Discharged to home or Selfcare 08/27/2025 10:00 AM BRIDGE OPERATOR SLIP [facility] [address] [place] [address] 09/10/2025 9:30 AM BRIDGE OPERATOR SLIP Clinical Support [facility] Oncology Services [address] [place] [address] 10/08/2025 9:30 AM BRIDGE OPERATOR SLIP Clinical Support [facility] Oncology Services [address] [place] [address] 02/04/2026 9:00 AM CDT Office Visit [facility] Oncology Services [address] [place] [address] [facility] Phuong Angelina, PAC [address] [place] [address] Discharge Disposition: Discharged to home or Selfcare documented as of this encounter Visit Diagnoses Not on filedocumented in this encounter Additional Health Concerns Assessment Noted Time PHQ-9 Depression Total Score: 0 05/08/20 25 10:49 AM CDT documented as of this encounter Care Teams Family Resource Specialist Relationship Specialty Start Date End Date Varun Jenkins APRN, LISA #[address] [address] PCP - General Advanced Practice Nurse 11/25/21 Varun Jenkins APRN, CNP #[address] [address] Nurse Practitioner Advanced Practice Nurse 11/25/21 Prabhu Mathew MD [address] [phone] Consulting Physician Endocrinology 04/29/22 Christian Lua MD [address] [place] [address] Consulting Physician Neurology 05/01/22 documented as of this encounter
--- OUTSIDE RECORDS SUMMARY | 2025-08-12 14:23 | XMS_ITS | Clinical Summary ---
Author Organization [facility] Address [address] [place] [address] Phone Care Team Providers Care Mosaic Tile Maker Name Role Phone Varun Jenkins APRN, LISA Unavailable Varun Jenkins APRN, LISA Primary Care Pr ovider Prabhu Mathew MD Unavailable Christian Lau MD Unavailable [phone] Allergies Active Allergy Reactions Criticality Noted Date Comments Bupropion Rash Medium 08/26/2015 Medications Blood Glucose Monitoring Suppl DeviceIndication s:Type 2 diabetes mellitus with hyperglycemia, without long-term current use of insulin Diagnosis: Diabetes type 2 Blood testing frequency: once a day E11.65 1 Each 12/02/19 22 Active Glucose Blood StripIndications :Type 2 diabetes mellitus with hyperglycemia, without long-term current use of insulin Diagnosis: Diabetes type 2 Blood testing frequency: once a day E11.65 100 Strip 3 12/02/19 22 Active Lancets MiscIndications: Type 2 diabetes mellitus with hyperglycemia, without long-term current use of insulin Use to test blood sugar once daily as directed. E11.65 100 Lancet 3 12/02/19 22 Active aspirin EC 81 MG Tablet Delayed ResponseIndicati ons:Erythrocytos is Take 1 Tablet by mouth daily. 90 [...] Active albuterol 108 (90 Base) MCG/ACT Aerosol SolutionIndicati ons:Acute lower respiratory infection take 2 Puffs by inhalation every 4 hours as needed for Wheezing or Cough. 18 g 06/24/20 22 Active LORazepam (ATIVAN) 0.5 MG Tablet 07/22/20 22 Active Diclofenac Sodium (VOLTAREN) 1 % Gel Apply 4 g 4 times daily. Both knees 100 g 11 12/24/19 23 Active metoclopramide (REGLAN) 10 MG Tablet Take 1 Tablet by mouth 4 times daily as needed for Nausea - 2nd line. 10 Tablet 01/27/20 23 Active Additional Information Patient not taking.Reported on 08/06/2025 Testosterone Cypionate 200 MG/ML SolutionIndicati ons:Male hypogonadism 100 mg by Intramuscular route once a week. 6 mL 12/31/19 24 Active BD Integra Syringe 21G X [...] TO THE AFFECTED AREA EVERY DAY Active clomiPHENE (CLOMID) 50 MG Tablet Take 50 mg by mouth daily. Active Human Chorionic Gonadotropin Powder by Does not apply route. Active metFORMIN (GLUCOPHAGE) 1000 MG TabletIndication s:Type 2 diabetes mellitus with hyperglycemia, without long-term current use of insulin Take 1 Tablet by mouth 2 times daily (with meals). 180 Tablet 1 03/19/20 25 Active empagliflozin (Jardiance) 10 MG TabletIndication s:Type 2 diabetes mellitus with hyperglycemia, without long-term current use of insulin Take 1 Tablet by mouth daily. 90 Tablet 3 03/19/20 25 Active cyclobenzaprine (FLEXERIL) 10 MG TabletIndication s:Contusion of left hip, initial encounter Take 1 Tablet by mouth 3 times daily as needed for Muscle spasms. 90 Tablet 1 04/23/20 25 Active ondansetron (ZOFRAN-ODT) 4 MG TABLET DISPERSIBLEIndic ations:Type 2 diabetes mellitus with hyperglycemia, without long-term current use of insulin Take 1 Tablet by mouth every 8 hours as needed for Nausea - 1st line. 10 Tablet 04/23/20 25 Active Mounjaro 7.5 MG/0.5ML Solution Auto-injector INJECT 1 SYRINGE SUBCUTANEOUSLY ONCE A WEEK 2 mL 2 05/08/20 25 Active HYDROcodone-acet aminophen (NORCO) 10-325 MG TabletIndication s:Lumbar spondylosis Take 1 Tablet by mouth every 8 hours as needed for Moderate or more severe pain. 15 Tablet 05/08/20 25 Active tadalafil (Cialis) 10 MG TabletIndication s:Male sexual dysfunction Take 1 Tablet by mouth as needed for Erectile Dysfunction. Take 30-60 minutes prior to sexual activity. 10 Tablet 1 06/28/20 25 Active amphetamine-dext roamphetamine (ADDERALL) 30 MG TabletIndication s:Attention deficit hyperactivity disorder (ADHD), predominantly inattentive type Take 1 Tablet by mouth 2 times daily. 60 Tablet 08/01/20 25 Active amphetamine-dext roamphetamine (ADDERALL) 30 MG TabletIndication s:Attention deficit hyperactivity disorder (ADHD), predominantly inattentive type Take 1 Tablet by mouth 2 times daily. 60 Tablet 06/28/20 25 025 Discontin ued(Reord er) Active Problems Problem Noted Date Diagnosed Date MDD (major depressive disorder) 03/19/2025 ADHD 04/15/2023 Long-term current use of testosterone [...] Encounters Date Type Department Care Team Description 08/11/2025 Travel 08/06/2025 9:00 AM CLAIMS MANAGER Clinical Support [facility] [address] [place] [address] Phuong Rosales Angelina, PAC Secondary polycythemia (Primary Dx) Discharge Disposition: Discharged to home or Selfcare 08/06/2025 8:20 AM CLAIMS MANAGER Office Visit [facility] [address] [place] [address] Phuong Rosales, FRANKLIN Polycythemia (Primary Dx); Long-term current use of testosterone cypionate Discharge Disposition: Discharged to home or Selfcare 08/06/2025 Travel 08/02/2025 Results Follow-Up [facility] [address] [place] [address] Phuong Rosales Angelina, [facility] CBC WITH AUTO DIFFERENTIAL 08/02/2025 Travel 07/30/2025 MyChart RX Renewal [facility] [address] [place] [address] Varun Jenkins, ROGERS, AUDIT LEAD Medication Renewal Request 06/28/2025 MyChart RX Renewal [facility] [address] [place] [address] Varun Jenkins, ROGERS, AUDIT LEAD Medication Renewal Request 05/28/2025 MyChart RX Renewal [facility] [address] [place] [address] Varun Jenkins, FIRE PRODUCTION OPERATOR, AUDIT LEAD Medication Renewal Request from Last 3 Months Immunizations Immunization Administration [...] Medical History Relation Name Comments Hypertension Father José Miguel Hypertension Mother Audelia Asthma Sister Relation Name Status Comments Brother Alive Father José Miguel Alive Mother Audelia Alive Sister Social History Tobacco Use Types Packs/Day Years Used Date Smoking Tobacco: Former Smokeless Tobacco: Never Tobacco Cessation:Counseling Given: Not Answered Alcohol Use Standard Drinks/Week Comments Never 0 (1 standard drink = 0.6 oz pur e alcohol) [facility] Utilities Answer Date Recorded In the past 12 months has [employer], oil, or water [employer] threatened to shut off services in your home? Patient declined 10/03/2024 Social Connection and Isolation Panel Answer Date Recorded In a typical week, how many times do you talk on the phone with family, friends, or neighbors? Patient declined 10/03/2024 How often do you get togethe r with friends or relatives? Patient declined 10/03/2024 How often do you attend rastafari or lutheran serv ices? Patient declined 10/03/2024 Do you belong to any clubs o r organizations such as rastafari groups, unions, fraternal or athletic groups, or [...] Score - Questions 1-9 0 09/0 04/2025 [facility] of Occupat ional [facility] - Occupational Stress Questionnaire Answer Date Recorded [...] place to sleep or slept in a mcfp (including now)? No 10/05/2023 Housing Stability Vital [...] any time in the past 12 m [facility], were you homeless or living in a mcfp (including now)? Patient declined 10/03/2024 Education Answer Date Recorded What is the highest level of school you have completed or the highest degree you have received? Bachelor's degree (e.g., BA, AB, BS) 01/20/2023 Sexually Active Control Partners Comments Yes Sex and Gender Information Value Date Recorded Sex Assigned at Not on file Legal Sex Male 3:05 PM CLAIMS MANAGER Gender Identity Not on file Sexual Orientation Not on file Last Filed Vital Signs Vital Sign Reading Time Taken Comments Blood Pressure 112/79 08/06/2025 9:20 AM CLAIMS MANAGER Pulse 105 08/06/2025 9:20 AM CLAIMS MANAGER Temperature 36.7 C (98.1 F) 08/06/2025 8:30 AM CLAIMS MANAGER Respiratory Rate 20 08/06/2025 8:30 AM CLAIMS MANAGER Oxygen Saturation 97% 08/06/2025 8:30 AM CLAIMS MANAGER Inhaled Oxygen Concentration - - Weight 131.5 kg (290 lb) 08/06/2025 8:04 AM CLAIMS MANAGER Height 170.2 cm (5' 7) 08/06/2025 8:04 AM CLAIMS MANAGER Body Mass Index 45.42 08/06/2025 8:04 AM CLAIMS MANAGER Plan of Treatment Upcoming Encounters Date Type Department Care Team (Latest Contact Info) Description 08/13/2025 9:30 AM CLAIMS MANAGER Clinical Support [facility] [address] [place] [address] Phuong Rosales Angelina, PAC [address] [place] [address] Discharge Disposition: Discharged to home or Selfcare 08/27/2025 10:00 AM CLAIMS MANAGER Clinical Support [facility] [address] [place] [address] 09/10/2025 9:30 AM CLAIMS MANAGER Clinical Support [facility] [address] [place] [address] 10/08/2025 9:30 AM CLAIMS MANAGER Clinical Support [facility] [address] [place] [address] 02/04/2026 9:00 AM CDT Office Visit [facility] [address] [place] [address] Phuong Rosales Angelina, PAC [address] [place] [address] Discharge Disposition: Discharged to home or Selfcare Health Maintenance Due Date Last Done Comments Diabetes: Eye Exam 1984 Diabetes: Foot Exam 1984 Varicella Immunization (1 of 2 - 13+ 2-dose series) 1997 Medicare Subsequent AWV G0439 01/07/2022 01/07/2021, 01/17/2020 Influenza Immunization (#1) 04/30/202505/01, 04/30/2019, 05/16/2018, Additional history exists SARS-COV-2 Immunization ( season) 2025 Diabetes: Hemoglobin A1c 09/19/2025 025, 11/13/2022, 07/17/2022, Additional history exists Diabetes: Nephropathy Screening 03/19/2026 03/19/2025, 03/19/2025, 01/26/2023, Additional history exists Td Immunization Every 10 Years (Adults With 1 Tdap) 05/21/2033 05/21/2023, 01/17/2016, 08/30/2011, Additional history exists Respiratory Syncytial Virus (RSV) Immunization (Adult) (1 - 1-dose 75+ series) 2059 Meningococcal Immunization (ACWY) Completed 03/31/2002, 03/31/2002 Hepatitis B Immunization Completed 003, 05/06/2002, 04/07/2002 Medicare Initial AWV G0438 Discontinued 07/19/2018 DTaP/Tdap/Td Immunization Discontinued 2022, 01/17/2016, 08/30/2011, Additional history exists Hepatitis C Virus (HCV) Screening Discontinued Human Papillomavirus (HPV) Immunization (No Doses Required) Completed Pneumococcal Immunization Combined Discontinued Rotavirus Immunization Aged Out No lo nger eligible based on patient's age to complete this topic Procedures Procedure Name Priority Date/Time Associated Diagnosis Comments CBC WITH AUTO DIFFERENTIAL Routine 08/11/2025 11:47 AM CLAIMS MANAGER Polycythemia COMPLETE BLOOD COUNT (CBC) WITH DIFF Routine 08/11/2025 11:47 AM CLAIMS MANAGER Polycythemia CBC WITH AUTO DIFFERENTIAL Routine 08/02/2025 10:55 AM CLAIMS MANAGER Long-term current use of testosterone cypionate COMPLETE BLOOD COUNT (CBC) WITH DIFF Routine 08/02/2025 10:55 AM CLAIMS MANAGER Long-term current use of testosterone cypionate CMP (COMPREHENSIVE METABOLIC PANEL) Routine 03/19/2025 8:37 AM CDT Type 2 diabetes mellitus without complication, without long-term current use of insulin HEMOGLOBIN A1C W/ ESTIMATED GLUCOSE Routine 03/19/2025 8:37 AM CDT Type 2 diabetes mellitus without complication, without long-term current use of insulin from Last 3 Months or Most Recently Relevant to Health Maintenance Results * (ABNORMAL) CBC WITH AUTO DIFFERENTIAL (08/11/2025 11:47 AM CLAIMS MANAGER) Only the most recent of2 resultswithin the time period is included. WBC 8.64 4.00 - 12.00 10(3)/[facility] 08/11/2025 11:50 AM CLAIMS MANAGER [facility] RBC 5.91(H) 4.40 - 5.80 10(6)/[facility] 08/11/2025 11:50 AM [facility] HEMOGLOBIN (HGB) 17.3(H) 13.0 - 16.5 g/dL 08/11/2025 11:50 AM [facility] HEMATOCRIT (HCT) 50.8(H) 38.0 - 50.0 % 08/11/2025 11:50 AM CLAIMS MANAGER [facility] MCV 86.0 82.0 - 96.0 fL 08/11/2025 11:50 AM CLAIMS MANAGER [facility] MCH 29.3 26.0 - 32.0 pg 08/11/2025 11:50 AM [facility] MCHC 34.1 31.0 - 36.0 g/dL 08/11/2025 11:50 AM [facility] PLATELET COUNT 256 140 - 440 10(3)/[facility] 08/11/2025 11:50 AM [facility] RDW 13.3 11.8 - 15.5 % 08/11/2025 11:50 AM [facility] MPV 10.5 8.0 - 12.6 fL 08/11/2025 11:50 AM [facility] NEUTROPHILS 72.7(H) 40.0 - 68.0 % 08/11/2025 11:50 AM [facility] LYMPHOCYTES 18.2(L) 19.0 - 49.0 % 08/11/2025 11:50 AM CLAIMS MANAGER [facility] MONOCYTES 6.9 3.0 - 13.0 % 08/11/2025 11:50 AM [facility] EOSINOPHILS 1.5 0.0 - 8.0 % 08/11/2025 11:50 AM [facility] BASOPHILS 0.5 0.0 - 1.0 % 08/11/2025 11:50 AM CLAIMS MANAGER [facility] IMMATURE GRANULOCYTE 0.2 0.0 - 0.4 % 08/11/2025 11:50 AM CLAIMS MANAGER [facility] ABSOLUTE NEUTROPHILS 6.28(H) 1.40 - 5.30 10(3)/[facility] 08/11/2025 11:50 AM CLAIMS MANAGER [facility] ABSOLUTE LYMPHOCYTES 1.57 0.90 - 3.30 10(3)/[facility] 08/11/2025 11:50 AM CLAIMS MANAGER [facility] ABSOLUTE MONOCYTES 0.60 0.10 - 0.90 10(3)/[facility] 08/11/2025 11:50 AM CLAIMS MANAGER [facility] ABSOLUTE EOSINOPHIL 0.13 0.00 - 0.50 10(3)/[facility] 08/11/2025 11:50 AM CLAIMS MANAGER [facility] ABSOLUTE BASOPHILS 0.04 0.00 - 0.10 10(3)/[facility] 08/11/2025 11:50 AM CLAIMS MANAGER [facility] ABSOLUTE IMMATURE GRANULOCYTE 0.02 0.00 - 0.03 10 (3) [facility]. 08/11/2025 11:50 AM CLAIMS MANAGER [facility] NRBC PER 100 WBC 0 08/11/20 25 11:50 AM CLAIMS MANAGER [facility] Blood Venipuncture / Unknown 08/11/2025 11:47 AM CLAIMS MANAGER 08/11/2025 11:47 AM CLAIMS MANAGER Phuong Rosales PAC HEMATOLOGY ORDERABLES Fin al Result [facility] [address] [place] [address] * (ABNORMAL) HEMOGLOBIN A1C W/ ESTIMATED GLUCOSE (03/19/2025 8:37 AM CDT) HGB-A1C 8.9(H) 4.0 - 6.0 % 03/19/2025 9:27 AM CDT [facility] Est Average Glucose 208.7 mg/dL 03/19/2025 9:27 AM CDT [facility] Blood Venipuncture / Unknown 03/19/2025 8:37 AM CDT 03/19/2025 9:11 AM CDT Narrative [facility] - 03/19/2025 9:27 AM CDT HEMOGLOBIN A1C: DIABETIC PATIENTS: WELL-CONTROLLED: 6.2 - 7.0 INTERMEDIATE WELL-CONTROLLED: 7.0 - 9.0 POORLY-CONTROLLED: >9.0 Specimens containing greater than 5% of Hemoglobin F may result in lower than expected % HbA1C results. us Varun Jenkins APRN, AUDIT LEAD CHEMISTRY ORDERA BLES Final Result [facility] [address] [place] [address] * (ABNORMAL) CMP (COMPREHENSIVE METABOLIC PANEL) (03/19/2025 8:37 AM CDT) SODIUM 140 136 - 145 mmol/L 03/19/2025 9:40 AM CDT [facility] POTASSIUM 3.8 3.5 - 5.1 mmol/L 03/19/2025 9:40 AM CDT [facility] CHLORIDE 106 98 - 107 mmol/L 03/19/2025 9:40 AM CDT [facility] CO2, VENOUS 24 22 - 30 mmol/L 03/19/2025 9:40 AM CDT [facility] ANION GAP 13.8 <18.0 mmol/L 03/19/2025 9:40 AM CDT [facility] GLUCOSE 189(H) 70 - 99 mg/dL 03/19/2025 9:40 AM CDT [facility] BUN 12 9 - 21 mg/dL 03/19/2025 9:40 AM CDT [facility] CREATININE, BLOOD 0.81 0.70 - 1.30 mg/dL 03/19/2025 9:40 AM CDT [facility] BUN/CREATININE RATIO 15 12 - 20 ratio 03/19/2025 9:40 AM CDT [facility] TOTAL PROTEIN 7.4 6.0 - 8.0 g/dL 03/19/2025 9:40 AM CDT [facility] ALBUMIN 4.1 3.5 - 5.0 g/dL 03/19/2025 9:40 AM CDT [facility] A/G RATIO 1.2 1.0 - 2.2 03/19/2025 9:40 AM CDT [facility] CALCIUM 9.0 8.7 - 10.5 mg/dL 03/19/2025 9:40 AM CDT [facility] T BILI 0.7 0.2 - 1.2 mg/dL 03/19/2025 9:40 AM CDT [facility] SGOT (AST) 110(H) <43 U/L 03/19/2025 9:40 AM CDT [facility] SGPT (ALT) 133(H) <56 U/L 03/19/2025 9:40 AM CDT [facility] ALKALINE PHOSPHATASE 79 40 - 150 U/L 03/19/2025 9:40 AM CDT [facility] IS THE PATIENT REQUIRED TO BE FASTING? No 03/19/2025 9:40 AM CDT [facility] GFR, ESTIMATED >60 >=60 03/19/2025 9:40 AM CDT [facility] Comment: Creatinine Clearance is the preferred criteria for selecting drug dose adjustments in renally impaired patients. The GFR is provided as additional pertinent clinical information. GFR is reported in mL/min/1.73 sq m. Calculation based on the Chronic Kidney Disease Epidemiology Collaboration (CKD- EPI) equation refit without adjustment for race. GFR, EST. >60 >=60 025 9:40 AM CDT [facility] GFR, EST. NONAFRICAN >60 >=60 03/19/2025 9:40 AM CDT [facility] Blood Venipuncture / Unknown 03/19/2025 8:37 AM CDT 03/19/2025 9:11 AM CDT Varun Jenkins APRN, AUDIT LEAD CHEMISTRY ORDERA BLES Final Result [facility] [address] [place] [address] from Last 3 Months or Most Recently Relevant to Health Maintenance Insurance [place] MEDICARE C [facility] MED[facility] C [employer] [place] [address] MEDICARE C [facility] Care Teams Mosaic Tile Maker Relationship Specialty Start Date End Date Varun Jenkins APRN, LISA [address] [address] PCP - General Advanced Practice Nurse 11/25/21 Varun Jenkins APRN, CNP #[address] [address] Nurse Practitioner Advanced Practice Nurse 11/25/21 Prabhu Mathew MD [address] [id number] Consulting Physician Endocrinology 04/29/22 Christian Lau MD [address] [place] [id number] Consulting Physician Neurology 05/01/22
--- OUTSIDE RECORDS SUMMARY | 2025-08-12 14:23 | XMS_ITS | Clinical Summary ---
Author Organization [facility] Address [address] [place] [address] Care Team Providers Care Plywood Matcher Name Role Phone Williams Reddy DO Unavailable Varun Jenkins MOTOR SCOOTER REPAIRER-CENTER DIRECTOR Primary Care Pro vider Source Comments [facility],non-owned Affiliates and Associated Physician Practices is amultiple site organization consisting of ambulatory clinics and hospital sitesin [place], [place], [place] and [place]. This disclosure is being madepursuant to the Care Everywhere program and may not contain all information available regarding this patient. Last updated 18.[facility] Allergies Active Allergy Reactions Criticality Noted Date [...] 12/02/19 22 Active Blood Glucose Monitoring Suppl ([employer] REFLECT) w/Device KIT USE TEST ONCE DAILY [...] Years Used Date Smoking Tobacco: Former Cigarettes 0 Q uit: 08/28/2013 Smokeless Tobacco: Never Tobacco [...] this topic Medical Devices Implanted Type Area Asp Developer Device Identifier Shelf Expiration Date Model / Serial / Lot Chava Push Comp 2.9mm Implanted:Qty: 2 on 10/15/2014 by Flo Silverman MD at [facility] Left: Shoulder [employer] 03/30/2016 [id number] / / [id number] Anch Quincy Swvl Chava Tenod Biocomp 7 X 19.1 Implanted:Qty: 1 on 10/15/2014 by Flo Silverman MD at [facility] Left: Shoulder [employer] 06/30/2016 [id number] -[id number] / / [id number] Procedures Procedure Name Priority Date/Time Associated Diagnosis [...] factors. LDL-C is now calculated using the Ozzie calculation, which is a validated novel method providing better accuracy than the Friedewald equation in the estimation of LDL-C. Ramon ORELLANA et al. SADIA. 2013;310(19): 5692-2487 (http://education.IP Street.Spotfav Reporting [employer]/faq/JSC926) CHOL/HDLC RATIO 4.5 <5.0 (calc) [facility] Non HDL Cholesterol 141(H) <130 mg/dL (calc) [facility] Comment: For patients with diabetes plus 1 major ASCVD risk factor, treating to a non-HDL-C goal of <100 mg/dL (LDL-C of <70 mg/dL) is considered a therapeutic option. Test Performed at: [facility] [address] [place] [address] MARGARET REYES DO,MPH Blood BLOOD SPECIMEN / Unknown 01/13/2021 8:08 AM CDT 01/13/2021 8:08 AM CDT us Dalton Peraza MD LAB - CHEMISTRY ORDERABLES F inal Result [facility] [id number] [place] [address] from Last 3 Months or Most Recently Relevant to Health Maintenance Insurance [facility] MANAGED MEDICARE [place] [id number] MEDICAID - OUT OF STATE [facility] MANAGED MEDICARE [place] [id number] [facility] Chat& (ChatAnd) Address: SHAYNA VillatoroB ATTENTION [id number] JOSE C, ABDULAZIZ [address] [facility] ADMINISTRATION [facility] Chat& (ChatAnd) Address: [facility] [address] [place] [address] Care Teams Plywood Matcher Relationship Specialty Start Date End Date Varun Jenkins APRN-LISA PCP - General 02/05/22 Williams Reddy DO Neurological Surgery 06/26/15
--- OUTSIDE RECORDS SUMMARY | 2025-08-12 14:23 | XMS_ITS | Encounter Summary ---
Author Organization [facility] Address [address] [place] [address] Phone Care Team Providers Care Silviculture Teacher Name Role Phone Varun Jenkins APRN, CNP Unavailable Varun Jenkins APRN, LISA Primary Care Pr ovider Prabhu Mathew MD Unavailable Christian Lau MD Unavailable [phone] Reason for Visit * Reason Comments Medication Refill Encounter Details Date Type Department Care Team (Late st Contact Info) Description 04/05/2022 Refill [facility] - Family Medicine [facility] [address] [place] [id number] Varun Jenkins APRN, TIRE CENTER SUPERVISOR [address] [address] Medication Refill Social History Tobacco Use Types [...] on file Legal Sex Male 3:05 PM HAND BINDER STRIPPER Gender Identity Not on file Sexual Orientation [...] discontinued on 04/03/2022 by Varun Jenkins APRN, TIRE CENTER SUPERVISOR for thefollowing reason: Dose adjustment. documented in this encounter Plan of Treatment Upcoming Encounters Date Type Department Care Team (Latest Contact Info) Description 08/13/2025 9:30 AM HAND BINDER STRIPPER Clinical Support [facility] [address] [place] [address] Phuong Rosales Angelina, [facility] [address] [place] [address] Discharge Disposition: Discharged to home or Selfcare 08/27/2025 10:00 AM HAND BINDER STRIPPER Clinical Support [facility] [address] [place] [address] 09/10/2025 9:30 AM HAND BINDER STRIPPER Clinical Support [facility] [address] [place] [address] 10/08/2025 9:30 AM HAND BINDER STRIPPER Clinical Support [facility] [address] [place] [address] 02/04/2026 9:00 AM CDT Office Visit [facility] [address] [place] [phone] Phuong Rosales Angelina, PAC [address] [place] [address] Discharge Disposition: Discharged to home or Selfcare documented as of this encounter Visit Diagnoses Diagnosis Type 2 diabetes mellitus with diabetic polyneuropathy, without long-term current use of insulin documented in this encounter Care Teams Silviculture Teacher Relationship Specialty Start Date End Date Varun Jenkins APRN, LISA [address] [address] PCP - General Advanced Practice Nurse 11/25/21 Varun Jenkins APRN, CNP #[address] [address] Nurse Practitioner Advanced Practice Nurse 11/25/21 Prabhu Mathew MD #[address] [phone] Consulting Physician Endocrinology 04/29/22 Christian Lau MD [address] [place] [phone] Consulting Physician Neurology 05/01/22 documented as of this encounter
--- OUTSIDE RECORDS SUMMARY | 2025-08-12 14:23 | XMS_ITS | Encounter Summary ---
Author Organization [facility] Address [address] [place] [address] Phone Care Team Providers Care Wind Tunnel Technician Name Role Phone Varun Jenkins APRN, CNP Unavailable Varun Jenkins APRN, LISA Primary Care Pr ovider Prabhu Mathew MD Unavailable Christian Lau MD Unavailable [phone] Reason for Visit * Reason Comments Medication Refill Encounter Details Date Type Department Care Team (Late st Contact Info) Description 04/29/2023 Refill [facility] - Family Medicine [facility] [address] [place] [id number] Varun Jenkins APRN, LISA [address] [address] Medication Refill Social History Tobacco Use Types [...] on file Legal Sex Male 3:05 PM KINDERGARTEN INSTRUCTIONAL ASSISTANT Gender Identity Not on file Sexual [...] discontinued on 01/29/2022 by Varun Jenkins APRN, TRACK REPAIR SUPERVISOR for thefollowing reason: Dose adjustment documented in this encounter Plan of Treatment Upcoming Encounters Date Type Department Care Team (Latest Contact Info) Description 08/13/2025 9:30 AM KINDERGARTEN INSTRUCTIONAL ASSISTANT Clinical Support [facility] [address] [place] [address] Phuong Rosales, [facility] [address] [place] [address] Discharge Disposition: Discharged to home or Selfcare 08/27/2025 10:00 AM KINDERGARTEN INSTRUCTIONAL ASSISTANT Clinical Support [facility] [address] [place] [address] 09/10/2025 9:30 AM KINDERGARTEN INSTRUCTIONAL ASSISTANT Clinical Support [facility] [address] [place] [address] 10/08/2025 9:30 AM KINDERGARTEN INSTRUCTIONAL ASSISTANT Clinical Support [facility] [address] [place] [phone] 02/04/2026 9:00 AM CDT Office Visit [facility] [address] [place] [phone] Phuong Rosales Angelina, PAC [address] [place] [address] Discharge Disposition: Discharged to home or Selfcare documented as of this encounter Visit Diagnoses Diagnosis Type 2 diabetes mellitus with diabetic polyneuropathy, without long-term current use of insulin documented in this encounter Care Teams Wind Tunnel Technician Relationship Specialty Start Date End Date Varun Jenkins APRN, LISA [address] [address] PCP - General Advanced Practice Nurse 11/25/21 Varun Jenkins APRN, CNP #[address] [address] Nurse Practitioner Advanced Practice Nurse 11/25/21 Prabhu Mathew MD #[address] [phone] Consulting Physician Endocrinology 04/29/22 Christian Lau MD [address] [place] [phone] Consulting Physician Neurology 05/01/22 documented as of this encounter
[2025-08-12 14:29] LABS: Hematocrit 51.6 % (40.0-54.0); Hemoglobin 17.1 g/dL (14.0-18.0); Immature Granulocyte Percent A 0.4 % (0.0-0.0); Lymphocytes Absolute Auto 1.40 K/mm3 (1.10-4.50); Mean Corpuscular HGB Conc 33.1 g/dL (32-36); Mean Corpuscular Hemoglobin 28.6 pg (27.0-31.0); Mean Corpuscular Volume 86.3 fL (78.0-102.0); Nucleated Red Blood Cells Absolute Auto 0.00 K/mm3 (0.00-0.00); Nucleated Red Blood Cells Perc 0.0 % (0-0.0); Platelet Count Result 281 K/mm3 (150-420); Red Blood Count 5.98 M/mm3 (4.70-6.10); White Blood Count 13.4 K/mm3 (4.8-10.8)
[2025-08-12 14:30] LABS: Add Urine Microscopic? YES; Appearance Urine Clear (Clear); Glucose Urine UA 3+ (Negative); Leukocyte Esterase Ur Negative LEU/UL (Negative); Nitrate Urine Negative (Negative); Specific Grav Ur <= 1.005 (1.010-1.020)
[2025-08-12 14:40] LABS: Alanine Aminotransferase 57 U/L (6-50); Albumin Level 4.5 g/dL (3.5-5.1); Alkaline Phosphatase 72 U/L (38-126); Anion Gap 11 mmol/L (4-12); Aspartate Amino Transferase 32 U/L (17-59); Bilirubin,Total 1.2 mg/dL (0.2-1.3); Blood Urea Nitrogen 10 mg/dL (9-20); Calcium 9.5 mg/dL (8.4-10.2); Carbon Dioxide 23 mmol/L (22-30); Chloride 105 mmol/L (98-107); Estimated CRCL calculation 124 ml/min; Estimated Glomerular Filt Rate > 60; Glucose 153 mg/dL (65-110); Osmolality Calculated 290 mOsm/kg (285-295); Potassium 3.9 mmol/L (3.4-5.0); Sodium 139 mmol/L (137-145); Total Protein 7.8 g/dL (6.3-8.2)
[2025-08-12 14:52] LABS: Troponin I < 0.012 ng/mL (0.000-0.034)
[2025-08-12 15:30] LABS: Lipase 190 U/L (23-300)
[2025-08-12 15:33] VITALS: BP 149/80; PULSE 91; RESP 20; TEMP 37; O2SAT 98
== END 2025-08-12 15:45 | disposition home or self-care (01) ==
PROVIDERS: Emergency Provider Internal Medicine Critical Care Medicine
DX: F41.9 Anxiety disorder, unspecified (principal); R10.9 Unspecified abdominal pain
CPT/HCPCS: 36415; 74176; 80053; 81001; 83605; 83690; 84484; 85025; 99284